=== PATIENT | male | born 1990 | race Caucasian/White ===

== ENCOUNTER 2021-04-27 08:59 | Emergency (ER) | payer OTHER, SELFPAY ==
--- NOTE | ~2021-04-27 | XR_ITS ---
EXAMINATION: XR chest 2V DATE: 04/27/2021 09:26 INDICATION: Midsternal chest pain. Cough and shortness of breath. TECHNIQUE: Frontal and lateral views of the chest were obtained. COMPARISON: None. FINDINGS: The chest demonstrates clear lungs without pneumonia, pleural effusion, or pneumothorax. Th e heart size is normal. IMPRESSION: 1. No acute cardiopulmonary disease. Reviewed, dictated and finalized at location A.
[2021-04-27 09:06] VITALS: BP 138/101; PULSE 96; RESP 14; TEMP 36.6; O2SAT 97
--- NOTE | 2021-04-27 09:11 | ECG_ITS ---
Measurements Intervals [place] Rate: 86 P: 59 NC: 163 QRS: -37 QRSD: 100 T: 47 QT: 348 QTc: 417 Interpretive Statements SINUS RHYTHM LEFT AXIS DEVIATION BORDERLINE R WAVE PROGRESSION, ANTERIOR LEADS BORDERLINE ECG Electronically Signed On 04-27-2021 9:15:29 CDT by Harry Sutton D.O.
[2021-04-27 09:12] VITALS: PULSE 90
[2021-04-27 09:29] LABS: Basophils Absolute Auto 0.1 K/mm3 (0.0-0.1); Basophils Percent Auto 0.7 % (0.2-1.2); Eosinophils Absolute Auto 0.1 K/mm3 (0-0.3); Eosinophils Percent Auto 1.8 % (0-4.4); Hematocrit 46.8 % (42.0-52.0); Hemoglobin 15.8 g/dL (14.0-18.0); Immature Granulocyte Absolute 0.03 K/mm3 (0.00-0.031); Immature Granulocyte Percent A 0.4 % (0-0.5); Lymphocytes Absolute Auto 3.27 K/mm3 (0.9-3.2); Lymphocytes Percent Auto 48.2 % (18.3-44.2); Mean Corpuscular HGB Conc 33.8 g/dl (32-36); Mean Corpuscular Hemoglobin 32.6 pg (26-34); Mean Corpuscular Volume 96.5 fl (80-100); Mean Platelet Volume 9.6 fl (7.4-10.4); Monocytes Absolute Auto 0.6 K/mm3 (0.1-0.6); Monocytes Percent Auto 9.1 % (2.6-8.5); Neutrophils Absolute Auto 2.7 K/mm3 (1.3-6.7); Neutrophils Percent Auto 39.8 % (45.5-73.1); Platelet Count Result 279 k/mm3 (150-375); Red Blood Count 4.85 M/mm3 (4.6-6.20); Red Cell Distribution Width 13.1 % (11.5-14.5); White Blood Count 6.8 K/mm3 (4.5-10.0)
[2021-04-27 09:39] LABS: Anion Gap 13 mmol/L (8-16); Blood Urea Nitrogen 9 mg/dL (9-20); Calcium 9.4 mg/dL (8.4-10.2); Carbon Dioxide 24 mmol/L (22-30); Chloride 99 mmol/L (98-107); Estimated Glomerular Filt Rate > 60; Glucose 99 mg/dL (65-110); Potassium 4.1 mmol/L (3.4-5.0); Sodium 136 mmol/L (137-145)
[2021-04-27 09:43] LABS: INR 0.9; Prothrombin Time 12.1 Seconds (11.1-14.7)
[2021-04-27 09:51] LABS: Troponin I < 0.012 ng/mL (0.000-0.034)
--- NOTE | 2021-04-27 09:59 | ED.CHESTPAIN ---
HPI - Chest Pain General Chief Complaint: Chest Pain Stated Complaint: Chest Heavy, Chills, Body Aches Time Seen by Provider: 04/27/21 09:57 Source: patient and RN notes reviewed History of Present Illness HPI narrative: Patient complaining been feeling sick, body aches and shortness of breath on exertion over the last 4 days associated with chills. Patient is fully vaccinated for COVID-19, had negative Covid test rapid and PCR over the last 3 days. Patient denies any fever, chills, nausea, vomiting, coughing. Patient reported the shortness of breath and chest pain worse with exertion, better at rest, patient denies lower extremity pain. Or distress. Patient works in the [employer] and would like to be of physical activity for 1 week Related Data Allergies Allergy/AdvReac Type Severity Reaction Status Date / Time No Known Allergies Allergy Verified 04/27/21 09:10 Review of Systems Review of Systems: CONSTITUTIONAL: Denies fever, chills, or sweats. EYES: Denies visual changes, redness, or discharge. ENT: Denies rhinorrhea, congestion, sore throat, or otalgia. CARDIOVASCULAR: Denies chest pain, palpitations, or edema. RESPIRATORY: Denies cough or dyspnea. GASTROINTESTINAL: Denies abdominal pain, nausea, vomiting, or diarrhea. GENITOURINARY: Denies dysuria or hematuria. SKIN: Denies rash or itching. MUSCULOSKELETAL: Denies back pain, joint pain, or myalgia. NEUROLOGIC: Denies headache, numbness, or weakness. PSYCHIATRIC: Denies anxiety or depression. [facility] Social History Social History Gender identity (if verbalized by the patient): Male Exam Narrative: General appearance: Well-developed, well-nourished Skin: Normal color Head: Normocephalic, nontraumatic Eyes: Clear conjunctiva ENT: Oropharynx normal, ears normal, nose normal Neck: Supple, nontender Chest and respiratory: Airway patent, no respiratory distress, no accessory muscle use Heart: Regular rate/rhythm Abdomen: Soft, nontender, no organomegaly, quiet bowel sounds Vascular: Normal peripheral pulses, normal capillary refill. Musculoskeletal: Normal range of motion, nontender back Neurologic: Alert and oriented ?3, MANAGER LAND is normal as tested, no gross motor deficit Course Course Emergency Course: Stable Vital Signs Vital signs: Vital Signs Temperature 36.6 C 04/27/21 09:06 Pulse Rate 96 04/27/21 09:06 Respiratory Rate 14 04/27/21 09:06 Blood Pressure 138/101 H 04/27/21 09:06 Pulse Oximetry 97 04/27/21 09:06 Temperature 36.6 C 04/27/21 09:06 Pulse Rate 83 04/27/21 10:47 Respiratory Rate 15 04/27/21 10:47 Blood Pressure 158/99 H 04/27/21 10:47 Pulse Oximetry 98 04/27/21 10:47 MDM - Chest Pain MDM Narrative Medical decision making narrative: Viral syndrome versus stress related symptoms Lab Data Result diagrams: 04/27/21 10:21 04/27/21 10:21 Labs: Lab Results 04/27/21 04/27/21 04/27/21 Range/Units 09:15 09:15 09:15 WBC 6.8 (4.5-10.0) K/mm3 RBC 4.85 (4.6-6.20) M/mm3 Hgb 15.8 (14.0-18.0) g/dL Hct 46.8 (42.0-52.0) % MCV 96.5 (80-100) fl MCH 32.6 (26-34) pg MCHC 33.8 (32-36) g/dl RDW 13.1 (11.5-14.5) % Plt Count 279 (150-375) k/mm3 MPV 9.6 (7.4-10.4) fl Immature Gran % (Auto) 0.4 (0-0.5) % Neut % (Auto) 39.8 L (45.5-73.1) % Lymph % (Auto) 48.2 H (18.3-44.2) % [place] % (Auto) 9.1 H (2.6-8.5) % Eos % (Auto) 1.8 (0-4.4) % Baso % (Auto) 0.7 (0.2-1.2) % Lymph # (Auto) 3.27 H (0.9-3.2) K/mm3 [place] # (Auto) 0.6 (0.1-0.6) K/mm3 Eos # (Auto) 0.1 (0-0.3) K/mm3 [place] # (Aut
[2021-04-27 10:28] LABS: Basophils Absolute Auto 0.1 K/mm3 (0.0-0.1); Basophils Percent Auto 0.8 % (0.2-1.2); Eosinophils Absolute Auto 0.1 K/mm3 (0-0.3); Eosinophils Percent Auto 1.7 % (0-4.4); Hematocrit 45.9 % (42.0-52.0); Hemoglobin 15.7 g/dL (14.0-18.0); Immature Granulocyte Absolute 0.02 K/mm3 (0.00-0.031); Immature Granulocyte Percent A 0.3 % (0-0.5); Lymphocytes Absolute Auto 2.49 K/mm3 (0.9-3.2); Lymphocytes Percent Auto 38.2 % (18.3-44.2); Mean Corpuscular HGB Conc 34.2 g/dl (32-36); Mean Corpuscular Hemoglobin 32.8 pg (26-34); Mean Corpuscular Volume 95.8 fl (80-100); Mean Platelet Volume 9.4 fl (7.4-10.4); Monocytes Absolute Auto 0.5 K/mm3 (0.1-0.6); Neutrophils Absolute Auto 3.3 K/mm3 (1.3-6.7); Platelet Count Result 263 k/mm3 (150-375); Red Blood Count 4.79 M/mm3 (4.6-6.20); White Blood Count 6.5 K/mm3 (4.5-10.0)
[2021-04-27 10:39] LABS: Alanine Aminotransferase 54 U/L (4-50); Albumin Level 4.6 g/dL (3.5-5.1); Alkaline Phosphatase 73 U/L (38-126); Anion Gap 11 mmol/L (8-16); Aspartate Amino Transferase 50 U/L (17-59); Bilirubin,Total 0.2 mg/dL (0.2-1.3); Blood Urea Nitrogen 9 mg/dL (9-20); Calcium 9.5 mg/dL (8.4-10.2); Carbon Dioxide 24 mmol/L (22-30); Chloride 99 mmol/L (98-107); Estimated Glomerular Filt Rate > 60; Glucose 99 mg/dL (65-110); Potassium 4.2 mmol/L (3.4-5.0); Sodium 134 mmol/L (137-145)
[2021-04-27 10:47] VITALS: BP 158/99; PULSE 83; RESP 15; O2SAT 98
[2021-04-27 12:05] LABS: D Dimer 0.27 ug/mL (<0.48)
[2021-04-27 12:20] VITALS: BP 156/92; PULSE 96; RESP 20; O2SAT 96
[2021-04-27 12:51] VITALS: BP 157/99; PULSE 98; RESP 14; TEMP 37.1; O2SAT 95
== END 2021-04-27 12:55 | disposition home or self-care (01) ==
PROVIDERS: Emergency Provider Emergency Medicine
DX: B34.9 Viral infection, unspecified (principal); R06.00 Dyspnea, unspecified; R94.31 Abnormal electrocardiogram [ECG] [EKG]
CPT/HCPCS: 36415; 71046; 80048; 80053; 84484; 85025; 85380; 85610; 85730; 93005; 99284

== ENCOUNTER 2023-02-19 17:34 | Emergency (ER) | payer OTHER, SELFPAY ==
[2023-02-19] VITALS (7 sets, daily range): BP systolic 153–175; BP diastolic 86–115; PULSE 96–128; RESP 16–22; TEMP 36.2; O2SAT 97–99
--- NOTE | ~2023-02-19 | XR_ITS ---
EXAMINATION: XR chest 1V portable 02/19/2023 18:19 INDICATION: Dizziness. Tachycardia. Chest palpitations. PROCEDURE: AP portable chest COMPARISON: 04/27/2021 FINDINGS: The lungs are clear. The cardiomediastinal silhouette is within normal limits. There are no pleural effusions. There is no pneumothorax suspected. IMPRESSION: 1: NO ACUTE CARDIOPULMONARY DISEASE. Reviewed, dictated and finalized at location L.
--- NOTE | ~2023-02-19 | CT_ITS ---
EXAMINATION: CTA chest PE protocol DATE: 02/19/2023 20:39 INDICATION: tachycardic tacypneic, TECHNIQUE: Computed tomography angiography (CTA) of the chest was performed with 100 mL Omnipaque-350 intravenous contrast timed to evaluate the pulmonary arteries. Coronal maximum intensity projection 3D-reconstructions were created by the technologist. The dose-length product (DLP) was 978.46 mGy-cm. Automated exposure control and iterative reconstruction technique were employed. COMPARISON: X-ray chest, same date. FINDINGS: Lung parenchyma and airways: Clear. Pleura: Unremarkable. Thoracic inlet, axillae and chest wall: Unremarkable. Thoracic aorta: Normal. Mediastinum: Normal. Heart and pericardium: Normal. Coronary artery calcifications: Absent. Upper abdomen: Diffuse fatty infiltration of the liver. Subcentimeter right lobe hypodensity, likely cyst or hemangioma.. Bones: No acute osseous finding. Pulmonary arteries: Study quality: Adequate. No pulmonary emboli detected. IMPRESSION: No CT evidence of acute pulmonary embolus. No acute intrathoracic process detected. Hepatic steatosis . Reviewed, dictated and finalized at location K. IMPRESSION: No CT evidence of acute pulmonary embolus. No acute intrathoracic process detec carmina. Hepatic steatosis.
--- NOTE | 2023-02-19 17:35 | ECG_ITS ---
Measurements Intervals [place] Rate: 115 P: 68 [place]: 159 QRS: -57 QRSD: 93 T: 64 QT: 306 QTc: 424 Interpretive Statements SINUS TACHYCARDIA LEFT ANTERIOR FASCICULAR BLOCK [QRS AXIS <= -45, QR IN I, RS IN II] COMPARED TO ECG 04/27/2021 09:11:21 SINUS TACHYCARDIA NOW PRESENT LEFT ANTERIOR FASCICULAR BLOCK NOW PRESENT Electronically Signed On 02-19-2023 18:29:18 CDT by Crystal Qureshi M.D.
[2023-02-19] MEDS: SODIUM CHLORIDE 0.9% IV 1,000 ML 999 ML IV CONT ×2 (18:32→18:56)
--- NOTE | 2023-02-19 18:54 | ED.ARRPALP ---
HPI - Arrhythmia/Palpitations General Chief Complaint: Arrhythmia/Palpitations <Quincy Santoro PA-C - Last Filed: 02/20/23 00:16> Stated Complaint: palpitations, dizzy <ANGELLA Estes Last Filed: 02/20/23 00:16> Time Seen by Provider: 02/19/23 18:10 <Quincy Santoro PA-C - Last Filed: 02/20/23 00:16> Source: patient <ANGELLA Estes Last Filed: 02/20/23 00:16> Mode of arrival: ambulatory <ANGELLA Estes Last Filed: 02/20/23 00:16> Limitations: no limitations <ANGELLA Estes Last Filed: 02/20/23 00:16> History of Present Illness HPI narrative: This is a 32-year-old male who presents to the ED with chief complaint of sudden onset palpitations and lightheadedness occurring this afternoon. Patient is in the [employer] and was doing and enlistment oath when this episode began. States he felt a rash come over him and he became nauseous and diaphoretic. States he tried to drive home and was getting a little short of breath when he drove home. He then laid down and became more nauseous and vomited once. Denies hematemesis. He states the dyspnea has subsided. Patient states he he has not had any chest pain at all today. Denies any LOC. Denies fevers, chills, abdominal pain, diarrhea, urinary symptoms, headache. Denies any recent increase in stress or anxiety. <ANGELLA Estes Last Filed: 02/20/23 00:16> Related Data Allergies/Adverse Reactions: Allergies Allergy/AdvReac Type Severity Reaction Status Date / Time No Known Allergies Allergy Verified 02/19/23 18:19 <ANGELLA Estes Last Filed: 02/20/23 00:16> [facility] Social History Social History: Social History Gender identity (if verbalized by the patient): Male <ANGELLA Estes Last Filed: 02/20/23 00:16> Exam Narrative: GENERAL: Overall well-appearing, however he does have some clamminess to his skin. HEAD: Normocephalic, atraumatic. EYES: PERRLA and EOMI. ENT: Nares clear, no rhinorrhea or epistaxis. Mucous membranes moist. Oropharynx without tonsillar hypertrophy exudate or other lesions. NECK: Supple. No adenopathy or masses. CHEST: Slightly tachypneic but no respiratory distress. Clear to auscultation. No wheezes rales or rhonchi. HEART: Tachycardic to 120 while I am in the room. Regular rhythm. No murmur heard. Normal peripheral pulses. ABDOMEN: Soft, nontender, nondistended, normal active bowel sounds. MSK: Normal range of motion. No edema. SKIN: Warm, dry, no rash. NEURO: Alert and oriented x3. No focal deficits. PSYCH: Normal mood and affect. <Quincy Santoro PA-C - Last Filed: 02/20/23 00:16> Course MANAGER PERSONAL/PA Physician Supervision For this patient encounter, I reviewed the MANAGER PERSONAL or PA documentation, treatment plan, and medical decision making and I had [id number] time with this patient. I performed all aspects of the MDM as documented. <Mouna Grajeda MD - Last Filed: 02/28/23 16:47> Vital Signs Vital signs: Vital Signs Temperature 97.1 F L 02/19/23 17:38 Pulse Rate 128 H 02/19/23 17:38 Respiratory Rate 22 H 02/19/23 17:38 Blood Pressure 153/99 H 02/19/23 17:38 Pulse Oximetry 99 02/19/23 17:38 Oxygen Delivery Room Air 02/19/23 17:38 Temperature 97.1 F L 02/19/23 17:38 Pulse Rate 117 H 02/19/23 22:49 Respiratory Rate 20 02/19/23 22:49 Blood Pressure 170/115 H 02/19/23 22:49 Pulse Oximetry 98 02/19/23 22:49 Oxygen Delivery Room Air 02/19/23 17:38 <Quincy Santoro PA-C - Last Filed: 02/20/23 00:16> Vital Signs Temperature 97.1 F L 02/19/23 17:38 Pulse Rate 128 H 02/19/23 17:38 Respiratory Rate 22 H 02/19/23 17:38 Blood Pressure 153/99 H 02/19/23 17:38 Pulse Oximetry 99 02/19/23 17:38 Oxygen Delivery Room Air 02/19/23 17:38 Temperature 97.1 F L 02/19/23 17:38 Pulse Rate 117 H 02/19/23 22:49 Respiratory Rate 20 06
[2023-02-19] MEDS: ONDANSETRON INJ 4 MG/2 ML VIAL IV PUSH (18:56)
[2023-02-19 19:32] LABS: Appearance Urine Clear (Clear); Bilirubin Urine Negative (Negative); Blood Urine Negative (Negative); Color Urine Yellow (Yellow); Glucose Urine UA Negative (Negative); Ketones Urine Negative (Negative); Leukocyte Esterase Ur Negative LEU/UL (Negative); Nitrate Urine Negative (Negative); Protein Urine Negative (Negative); Specific Grav Ur 1.007 (1.001-1.035); Urobilinogen Urine 0.2 mg/dL (<2.0)
[2023-02-19 19:36] LABS: Add Urine Microscopic? NO
[2023-02-19 19:43] LABS: Basophils Absolute Auto 0.1 K/mm3 (0.0-0.1); Basophils Percent Auto 0.7 % (0.2-1.2); Eosinophils Absolute Auto 0.1 K/mm3 (0-0.3); Eosinophils Percent Auto 0.3 % (0-4.4); Hematocrit 40.4 % (42.0-52.0); Immature Granulocyte Absolute 0.08 K/mm3 (0.00-0.031); Immature Granulocyte Percent A 0.5 % (0-0.5); Lymphocytes Absolute Auto 2.75 K/mm3 (0.9-3.2); Lymphocytes Percent Auto 18.1 % (18.3-44.2); Mean Corpuscular HGB Conc 34.7 g/dl (32-36); Mean Corpuscular Hemoglobin 33.7 pg (26-34); Mean Corpuscular Volume 97.1 fl (80-100); Mean Platelet Volume 9.3 fl (7.4-10.4); Monocytes Absolute Auto 0.8 K/mm3 (0.1-0.6); Monocytes Percent Auto 5.3 % (2.6-8.5); Neutrophils Absolute Auto 11.4 K/mm3 (1.3-6.7); Neutrophils Percent Auto 75.1 % (45.5-73.1); Platelet Count Result 272 k/mm3 (150-375); Red Blood Count 4.16 M/mm3 (4.6-6.20); Red Cell Distribution Width 12.8 % (11.5-14.5); White Blood Count 15.2 K/mm3 (4.5-10.0)
[2023-02-19 20:22] LABS: Alanine Aminotransferase 74 U/L (6-50); Albumin Level 4.3 g/dL (3.5-5.1); Alkaline Phosphatase 80 U/L (38-126); Anion Gap 8 mmol/L (8-16); Aspartate Amino Transferase 70 U/L (17-59); Bilirubin,Total 0.8 mg/dL (0.2-1.3); Blood Urea Nitrogen 9 mg/dL (9-20); Calcium 8.4 mg/dL (8.4-10.2); Carbon Dioxide 26 mmol/L (22-30); Chloride 100 mmol/L (98-107); Estimated CRCL calculation 185 ml/min; Estimated Glomerular Filt Rate > 60; Glucose 95 mg/dL (65-110); Magnesium 1.5 mg/dL (1.6-2.3); Potassium 3.5 mmol/L (3.4-5.0); Sodium 134 mmol/L (137-145)
[2023-02-19 20:35] LABS: Troponin I < 0.012 ng/mL (0.000-0.034)
[2023-02-19] MEDS: MAGNESIUM SULF 1 GM/D5W 100 ML 1 GM/100 ML BAG IVPB (21:24)
== END 2023-02-19 22:50 | disposition home or self-care (01) ==
PROVIDERS: Emergency Provider Physician Assistant
DX: R00.2 Palpitations (principal); R00.0 Tachycardia, unspecified; I44.4 Left anterior fascicular block
CPT/HCPCS: 36415; 71045; 71275; 80053; 81003; 83735; 84484; 85025; 93005; 96361; 96365; 96375; 99284; J0456; J2405; J3475; J7030; Q9967

== ENCOUNTER 2024-02-24 20:54 | Inpatient (IN) | payer OTHER, SELFPAY ==
--- NOTE | ~2024-02-24 | CT_ITS ---
EXAMINATION: CT chest abdomen pelvis w con DATE: 02/28/2024 11:28 INDICATION: Shortness of breath. Tachycardia and abdominal pain. TECHNIQUE: Computed tomography (CT) of the chest, abdomen, and pelvis was performed with 100 mL Omnip aque-350 intravenous contrast. Automated exposure control and iterative reconstruction technique were employed. The dose-length product was 1782.17 mGy-cm. COMPARISON: CT dated 02/24/2024 and MRI dated 02/25/2024 FINDINGS: CHEST CT: Small lung volumes. There is both basilar and dependent atelectasis in both lower lobes. There are sm all bilateral pleural effusions. No pneumonia or pulmonary edema in the aerated portions of the lungs . Heart size is normal. No pericardial effusion. Thoracic aorta is normal in caliber with no dissecti on. No pathologically enlarged thoracic lymphadenopathy. Chronic appearing mild anterior wedging at T 6. There are also few Schmorl's nodes in the lower thoracic spine. Mild to moderate thoracic spondylo sis. ABDOMEN/PELVIS CT: Likely vicariously excreted contrast in the gallbladder. Liver, spleen, bilateral adrenal glands and kidneys are normal. There is prominent peripancreatic stranding and acute peripancreatic fluid collec tions which extend into the bilateral perirenal spaces, the lesser omentum and along the mesentery co nsistent with acute interstitial pancreatitis. With pancreatic parenchymal enhancement with no eviden t necrosis. No other necrotic collections or loculated abscess. Small amount of nonloculated likely r eactive ascites in the abdomen and pelvis. Normal appendix. There is fluid throughout the large and s mall bowel consistent with nonspecific diarrhea. No bowel obstruction. Bladder is normal. No patholog ically enlarged abdominal or pelvic lymphadenopathy. Bone island at the right pubic body. IMPRESSION: 1. Acute interstitial pancreatitis with increasing peripancreatic stranding, acute peripancreatic flu id collections and small amount of ascites. 2. New small bilateral pleural effusions with basilar and dependent atelectasis in bilateral lower lo bes. 2. Increased fluid throughout nondilated large and small bowel consistent with nonspecific diarrhea w ithout obstruction. Reviewed, dictated and finalized at location B. IMPRESSION: 1. Acute interstitial pancreatitis with increasing peripancreatic stranding, ac [place] peripancreatic fluid collections and small amount of ascites. 2. New small bilateral pleural effusions with basilar and dependent atelectasis in bilateral lower lobes. 2. Increased fluid throughout nondilated large and small bowel consistent with nonspecific diarrhea without obstruction.
--- NOTE | ~2024-02-24 | MR_ITS ---
EXAMINATION: MR MRCP wo/w con/w 3D wo ind DATE: 02/25/2024 11:55 INDICATION: Pancreatitis. Transaminitis. TECHNIQUE: Magnetic resonance imaging (MRI) of the abdomen was performed without and with 20 mL Multi Rickey intravenous contrast. Sequences included coronal T2-weighted FS FSE, coronal T2-weighted FSE, a xial T1-weighted LAVA, coronal FS FIESTA, axial dual-echo T1-weighted SPGR, coronal lava-FLEX, sagitt al T2-weighted FSE, axial T2-weighted FSE, and axial DWI. Thick-slab T2-weighted FSE images were obta ined for magnetic resonance cholangiopancreatography (MRCP). Maximum intensity projection 3-D reconst ructions of the volumetric data were created by the technologist. Postcontrast sequences included cor onal LAVA-flex and time course of axial T1-weighted LAVA. COMPARISON: Abdomen ultrasound 02/25/2024, CT 02/24/2024 FINDINGS: ABDOMEN MRI: There is diffuse hepatic steatosis. The gallbladder is normal in size. The liver, adrena l glands, and kidneys are normal. There is extensive fat stranding and small volume of free fluid in the abdomen centered at the pancreas. The pancreas enhances throughout. There are no dilated loops of bowel. ABDOMEN MRCP: The common duct is normal and measures 3 mm. No choledocholithiasis. IMPRESSION: 1. Acute interstitial pancreatitis. 2. Diffuse hepatic steatosis. Reviewed, dictated and finalized at location A.
--- NOTE | ~2024-02-24 | CT_ITS ---
EXAMINATION: CTA chest PE protocol DATE: 02/28/2024 12:45 INDICATION: Shortness of breath and tachycardia TECHNIQUE: Computed tomography (CT) pulmonary angiogram of the chest was performed with 200 mL Omnipa que-350 intravenous contrast. Additional 3D reconstructions utilizing coronal maximum intensity proje ction (MIP) were performed. Automated exposure control and iterative reconstruction technique were em ployed. The dose-length product was 1766.61 mGy-cm. COMPARISON: None FINDINGS: Limited but suboptimal contrast desiccation of the pulmonary arteries on both initial and repeat imag ing. There is small amount of respiratory motion along with prominent streak artifact from dense cont rast in the left brachiocephalic vein, superior vena cava and right atrium. No evident pulmonary embo lism with sensitivity decreased in some of the smaller subsegmental pulmonary arteries. Decreased deepak ateral lung volumes particularly in the lower lobes with basilar and dependent atelectasis in the deepak ateral lower lobes. There is homogeneous enhancement of the collapsed portion of the lower lobes with out evident pulmonary infarct. No pneumonia or pulmonary edema. Small bilateral pleural effusions. He art size is normal. No pericardial effusion. Thoracic aorta is normal in caliber with no dissection. No pathologically enlarged thoracic lymphadenopathy. Diffuse hepatic steatosis. Findings consistent with acute interstitial pancreatitis with prominent peripancreatic stranding and acute peripancreatic fluid collections. IMPRESSION: 1. No pulmonary embolism. Sensitivity decreased in some of the smaller subsegmental pulmonary edema t o good but suboptimal contrast opacification, mild respiratory motion and more prominent streak artif act. 2. Small lung volumes with basilar and dependent atelectasis in the bilateral lower lobes. 3. Small bilateral pleural effusions. 4. Acute interstitial pancreatitis. Reviewed, dictated and finalized at location B. IMPRESSION: 1. No pulmonary embolism. Sensitivity decreased in some of the smaller subsegme ntal pulmonary edema to good but suboptimal contrast opacification, mild respir atory motion and more prominent streak artifact. 2. Small lung volumes with basilar and dependent atelectasis in the bilateral l ower lobes. 3. Small bilateral pleural effusions. 4. Acute interstitial pancreatitis.
--- NOTE | ~2024-02-24 | US_ITS ---
EXAMINATION: US abdomen limited DATE: 02/25/2024 07:41 INDICATION: Pancreatitis. Abnormal liver function tests. TECHNIQUE: Multiple grayscale and Doppler ultrasound images of the abdomen were obtained. COMPARISON: CT abdomen and pelvis 02/24/2024 FINDINGS: The pancreas is hypoechoic and heterogeneous, consistent with pancreatitis. There is diffus e hepatic steatosis. There is normal flow in main portal vein. The gallbladder is normal in size. No gallstones or gallbladder wall thickening. The common duct is normal and measures 4 mm. IMPRESSION: 1. Acute pancreatitis. 2. Diffuse hepatic steatosis. Reviewed, dictated and finalized at location A.
--- NOTE | ~2024-02-24 | CT_ITS ---
CT of the Abdomen and Pelvis: Indication: Abdominal pain Technique: 2.5 mm axial scans were obtained through the abdomen and pelvis following intravenous adm inistration of 100 cc of Omnipaque 350. Dose reduction technique was used on this scan by utilizing a utomated exposure control and iterative reconstruction technique. The dose-length product (DLP) was 1 296.30 mGy-cm. Findings: Scans through the lung bases demonstrate linear scarring or atelectasis right lung base. There is diffuse hepatic steatosis. There is extensive peripancreatic fluid and inflammatory change, with fluid extending into the anterior abdomen, as well as a small amount of pelvic ascites. No pancr eatic necrosis or distinct pseudocyst evident at this time. The spleen, gallbladder, adrenals and kid neys are within normal limits. No evidence of aortic aneurysm. No lymphadenopathy. No bowel obstruction or bowel wall thickening. There is no evidence to suggest acute appendicitis. Images through the pelvis were performed. Urinary bladder unremarkable. No pelvic mass seen. Impression: Acute pancreatitis, with extensive peripancreatic fluid and inflammatory change, as detailed above. N o pancreatic necrosis or pseudocyst identified. Diffuse hepatic steatosis. Reviewed, dictated and finalized at location . Impression: Acute pancreatitis, with extensive peripancreatic fluid and inflammatory change , as detailed above. No pancreatic necrosis or pseudocyst identified. Diffuse hepatic steatosis.
[2024-02-24 20:59] VITALS: PULSE 123; RESP 18; TEMP 36.3; O2SAT 96
[2024-02-24 21:51] VITALS: BP 141/89; PULSE 111; RESP 22; O2SAT 98
--- NOTE | 2024-02-24 22:08 | ED.NAVMDI ---
HPI - Nausea/Vomiting/Diarrhea General Chief complaint: Nausea/Vomiting/Diarrhea Stated complaint: abdominal pain Time Seen by Provider: 02/24/24 22:07 Source: patient Mode of arrival: ambulatory Limitations: no limitations History of Present Illness HPI Narrative: Patient presents with acute onset right lower quadrant/right sided abdominal pain and right flank pain. He reports being at his normal baseline state of health prior to this. This was associated with nausea vomiting (1 episode emesis) and he was diaphoretic. No fever. He denies any dysuria, hematuria, urgency, or frequency. No history of urinary tract infections or kidney stones. Hx of HTN on metoprolol and lisinopril. No history diabetes. No history of appendectomy or cholecystectomy. Related Data Home Medications Medication Instructions Recorded Confirmed lisinopril 20 1 tablet PO DAILY 02/25/24 02/25/24 mg-hydrochlorothiazide 12.5 mg tablet metoprolol succinate 50 mg 50 mg PO DAILY 02/25/24 02/25/24 tablet,extended release 24 hr Allergies Allergy/AdvReac Type Severity Reaction Status Date / Time No Known Allergies Allergy Verified 02/24/24 21:02 [facility] Past Medical History Medical History Hypertension DENISE on CPAP Family History Family History Mother Hypertension Social History Social History Smoking status: Never smoker Alcohol intake: current Other substance usage details: weekend use Do You Feel Safe in your Home?: Yes Lack of Transportation: No Lack of Food: Never True Current Housing: I Have Housing Concerned About Future Housing: No Difficulty Paying Gas/Electric Bills: No Difficulty Paying for Meds: No Currently Unemployed: No Education: Bachelor's Degree Difficulty w/ Childcare or Family Care: No Gender identity (if verbalized by the patient): Male Spiritual care concerns: No Exam Narrative: GENERAL: well-nourished, and in moderate acute distress. HEAD: Normocephalic, atraumatic. EYES: Non injected, non icteric ENT: Nares clear, no rhinorrhea or epistaxis. NECK: Supple. CHEST: Speaking in full sentences. No respiratory distress. HEART: Tachycardic rate and rhythm. . ABDOMEN: Soft, nondistended. Tender to palpation thoughout though particularly RLQ and adjacent to umbilicus. EXTREMITIES: Normal range of motion. No edema. SKIN: Diaphoretic, no rash. NEURO: No focal deficits. Alert and oriented x3. PSYCH: Normal mood and affect. Course Vital Signs Vital signs: Vital Signs Temperature 97.4 F L 02/24/24 20:59 Pulse Rate 123 H 02/24/24 20:59 Respiratory Rate 18 02/24/24 20:59 Pulse Oximetry 96 02/24/24 20:59 Oxygen Delivery Room Air 02/24/24 20:59 Temperature 96.9 F L 02/25/24 14:00 Pulse Rate 113 H 02/25/24 14:00 Respiratory Rate 20 02/25/24 14:00 Blood Pressure 154/93 H 02/25/24 14:00 Pulse Oximetry 95 02/25/24 14:00 Oxygen Delivery Room Air 02/25/24 08:00 MDM - Nausea/Vomiting/Diarrhea MDM Narrative Medical decision making narrative: Patient presents with acute onset RLQ/right sided abdominal pain associated with nausea/1 episode emesis, and diaphoresis. In the emergency department he is afebrile with vital signs notable for tachycardia as well as mild hypertension. Mild Hyperglycemia with anion gap and acidosis; no history of diabetes. Might be starvation versus alcohol ketosis. Will await urine and beta hydroxybutyrate. ELevated AST and ALT. Lipase markedly elevated consistent with pancreatitis. Patient is informed about this and that he will be admitted following CT imaging to confirm no complications such as abscess/perforation/fistula et cetera. Does state his pain is returning and another dose of analgesic medication is ordered. He also states he feels
[2024-02-24 22:25] LABS: Basophils Absolute Auto 0.1 K/mm3 (0.0-0.1); Basophils Percent Auto 0.2 % (0.2-1.2); Hematocrit 49.2 % (42.0-52.0); Hemoglobin 17.7 g/dL (14.0-18.0); Immature Granulocyte Absolute 0.17 K/mm3 (0.00-0.031); Immature Granulocyte Percent A 0.7 % (0-0.5); Lymphocytes Absolute Auto 1.68 K/mm3 (0.9-3.2); Lymphocytes Percent Auto 6.5 % (18.3-44.2); Mean Corpuscular Volume 94.4 fl (80-100); Mean Platelet Volume 9.4 fl (7.4-10.4); Monocytes Absolute Auto 0.8 K/mm3 (0.1-0.6); Monocytes Percent Auto 3.1 % (2.6-8.5); Neutrophils Percent Auto 89.5 % (45.5-73.1); Platelet Count Result 309 k/mm3 (150-375); Red Blood Count 5.21 M/mm3 (4.6-6.20); Red Cell Distribution Width 12.6 % (11.5-14.5); White Blood Count 25.7 K/mm3 (4.5-10.0)
[2024-02-24] MEDS: MORPHINE SULFATE (*CRX) 4 MG/ML INJ IV PUSH (22:26)
[2024-02-24] MEDS: ONDANSETRON INJ 4 MG/2 ML VIAL IV PUSH (22:26)
[2024-02-24] MEDS: SODIUM CHLORIDE 0.9% IV 1,000 ML 999 ML IV CONT ×2 (22:30→23:20)
[2024-02-24 22:35] LABS: Lactic Acid Reflex 3.6 mmol/L (0.7-2.0)
[2024-02-24 23:14] LABS: Alanine Aminotransferase 108 U/L (6-50)
[2024-02-24 23:28] LABS: Albumin Level 4.9 g/dL (3.5-5.1); Alkaline Phosphatase 85 U/L (38-126); Anion Gap 15 mmol/L (4-12); Aspartate Amino Transferase 98 U/L (17-59); Bilirubin,Total 1.1 mg/dL (0.2-1.3); Blood Urea Nitrogen 14 mg/dL (9-20); Calcium 9.5 mg/dL (8.4-10.2); Carbon Dioxide 20 mmol/L (22-30); Chloride 100 mmol/L (98-107); Estimated CRCL calculation 142 ml/min; Estimated Glomerular Filt Rate > 60; Glucose 166 mg/dL (65-110); Sodium 135 mmol/L (137-145)
[2024-02-24 23:29] LABS: Lipase 3354 U/L (23-300)
[2024-02-24] MEDS: HYDROmorphone HCL INJ (*CRX) 1 MG/ML SYR 0.5 MG IV PUSH (23:45)
[2024-02-24 23:49] LABS: Magnesium 1.3 mg/dL (1.6-2.3)
[2024-02-25] VITALS (8 sets, daily range): BP systolic 150–184; BP diastolic 92–124; PULSE 99–135; RESP 16–20; TEMP 35.7–36.6; O2SAT 92–96; BMI 37.0
[2024-02-25 00:06] LABS: Beta-Hydroxybutyrate/Acetoacetate 0.49 mmol/L (0.02-0.27)
[2024-02-25] MEDS: MAGNESIUM SULF 1 GM/D5W 100 ML 1 GM/100 ML BAG IVPB (00:06)
[2024-02-25 00:16] LABS: Triglycerides 225 mg/dL (<150)
[2024-02-25 00:28] LABS: Appearance Urine Clear (Clear); Bacteria Urine None Seen /hpf; Bilirubin Urine Negative (Negative); Blood Urine Negative (Negative); Color Urine Dark Yellow (Yellow); Glucose Urine UA Negative (Negative); Ketones Urine Trace mg/dL (Negative); Leukocyte Esterase Ur Negative LEU/UL (Negative); Nitrate Urine Negative (Negative); Non Pathogenic Casts >20; Protein Urine 1+ mg/dL (Negative); RBC Urine 0-2 /hpf (0-2); Squamous Epithelial Cell Urine None Seen /hpf (Few); WBC Urine 0-5 /hpf (0-3)
[2024-02-25 00:31] LABS: Add Urine Microscopic? YES; Specific Grav Ur 1.035 (1.001-1.035)
[2024-02-25] MEDS: INSULIN HUMAN REGULAR (*BKC) 100 UNITS/ML 6 UNITS SUB-Q (00:43)
[2024-02-25 00:52] LABS: Hemoglobin A1C 5.6 % (<5.7)
[2024-02-25 01:23] LABS: Reflex Lactic Acid Yes or No Add Lactic
[2024-02-25 02:25] LABS: Lactic Acid 2.6 mmol/L (0.7-2.0)
[2024-02-25] MEDS: SODIUM CHLORIDE 0.9% IV 1,000 ML 999 ML IV CONT (02:30)
[2024-02-25] MEDS: LACTATED RINGERS 1,000 ML 125 ML IV CONT ×2 (02:47→15:07)
[2024-02-25 03:02] LABS: Anion Gap 9 mmol/L (4-12); Blood Urea Nitrogen 16 mg/dL (9-20); Calcium 8.2 mg/dL (8.4-10.2); Carbon Dioxide 23 mmol/L (22-30); Chloride 102 mmol/L (98-107); Estimated CRCL calculation 160 ml/min; Estimated Glomerular Filt Rate > 60; Glucose 165 mg/dL (65-110); Sodium 134 mmol/L (137-145)
--- NOTE | 2024-02-25 03:53 | ADMGEN ---
This patient, Luis Nava, was admitted to 3 [facility] Surg Room 329-01. Patient/family oriented to hospital policies and general routines including ID bracelet, bed and alarms, visiting hours, pain management, procedures, bathroom and other care routines, personal items, smoking policy, room service/diet, and visiting hours. Information on how to activate the Rapid Response Team has been discussed. Patient/Family are encouraged to report perceived risks to care and to ask questions if they do not understand what they are told or what they should do.
[2024-02-25] MEDS: MORPHINE SULFATE (*CRX) 4 MG/ML INJ IV PUSH (04:03)
[2024-02-25] MEDS: HYDROmorphone HCL INJ (*CRX) 1 MG/ML SYR IV PUSH ×4 (05:43→21:24)
--- NOTE | 2024-02-25 07:23 | PM.IMHP ---
H&P: HPI History of Present Illness Date/Time: 02/25/24 14:23 Chief Complaint: pancreatitis Narrative: This is a 33-year-old male patient with a past medical history of hypertension and obstructive sleep apnea with use of CPAP at home who is admitted to the hospital for acute pancreatitis. Patient presented to the hospital yesterday after hours of abdominal pain nausea vomiting this started after lunch. Patient reports that he partakes in social alcohol use heavier use on the weekends. Patient denies smoking denies other drug use. He states that he drank heavier than usual for the last 4 nights due to a long weekend from work. Patient reports that he takes 2 medications for his blood pressure lisinopril/ HCTZ and metoprolol. Patient reports that he was initiated on the metoprolol after a prior incident pain nausea vomiting and tachycardia while on a training exercise. Patient was evaluated in [facility] and ultimately started on beta-cristiano for tachycardia. He feels like this was similar to this event but pain is worse this time. He reports that he vomited several times before coming to the hospital and has continued to feel nauseous but no subsequent emesis. Patient initially placed on NPO status except ice chips and IV fluids started. CT scan in the emergency department showed peripancreatic inflammation And fatty liver. Right upper quadrant ultrasound confirms diffuse hepatosteatosis but normal ducts size and no signs acute cholecystitis. MRCP shows peripancreatic fluid accumulation no choledocholithiasis. Gastroenterology was consulted and they have initiated significant laboratory assessment transaminitis and hepatic steatosis. IV fluids continue. Patient complaining of constipation. Now that we know he will not have ERCP he no longer has to remain NPO and we will gently start repeating attempts initiating with clear liquids and advancing as tolerated to bland diet. IV fluids will continue and we will trend CMP and lipase levels as well as CBC. Patient has significant leukocytosis initially greater than 25,000. Due to the peripancreatic fluid we will administer IV Rocephin and trend labs. No definitive signs of acute cholangitis at this time. Review of Systems Review of Systems: All systems reviewed & are unremarkable except as noted in HPI and below PMFSH Past Medical History Medical History Hypertension DENISE on CPAP Family History Family History Mother Hypertension Social History Social History Smoking status: Never smoker Alcohol intake: current Other substance usage details: weekend use Do You Feel Safe in your Home?: Yes Lack of Transportation: No Lack of Food: Never True Current Housing: I Have Housing Concerned About Future Housing: No Difficulty Paying Gas/Electric Bills: No Difficulty Paying for Meds: No Currently Unemployed: No Education: Bachelor's Degree Difficulty w/ Childcare or Family Care: No Gender identity (if verbalized by the patient): Male Spiritual care concerns: No Meds Home Medications and Allergies Home Medications Medication Instructions Recorded Confirmed Type lisinopril 20 1 tablet PO DAILY 02/25/24 02/25/24 History mg-hydrochlorothiazide 12.5 mg tablet metoprolol succinate 50 mg 50 mg PO DAILY 02/25/24 02/25/24 History tablet,extended release 24 hr Allergies Allergy/AdvReac Type Severity Reaction Status Date / Time No Known Allergies Allergy Verified 02/24/24 21:02 Vital Signs Vital Signs - 24 hr 02/24/24 20:59 02/24/24 21:51 02/25/24 05:10 Temperature 36.3 C L 36.4 C Pulse Rate 123 H 111 H 121 H Respiratory Rate 18 22 H 16 Blood Pressure 141/89 H 182/92 H Pulse Oximetry 96 98 96 Oxygen Delivery Room Air 02/25/24 06:37 Temperature
[2024-02-25 07:47] LABS: Basophils Percent Auto 0.1 % (0.2-1.2); Hematocrit 48.9 % (42.0-52.0); Hemoglobin 16.9 g/dL (14.0-18.0); Immature Granulocyte Absolute 0.14 K/mm3 (0.00-0.031); Immature Granulocyte Percent A 0.6 % (0-0.5); Mean Corpuscular HGB Conc 34.6 g/dl (32-36); Mean Corpuscular Hemoglobin 34.3 pg (26-34); Mean Corpuscular Volume 99.2 fl (80-100); Mean Platelet Volume 9.4 fl (7.4-10.4); Monocytes Absolute Auto 0.7 K/mm3 (0.1-0.6); Monocytes Percent Auto 3.3 % (2.6-8.5); Neutrophils Absolute Auto 19.7 K/mm3 (1.3-6.7); Platelet Count Result 265 k/mm3 (150-375); Red Blood Count 4.93 M/mm3 (4.6-6.20); Red Cell Distribution Width 12.8 % (11.5-14.5); White Blood Count 22.4 K/mm3 (4.5-10.0)
[2024-02-25 07:57] LABS: Lactic Acid Reflex 1.9 mmol/L (0.7-2.0)
[2024-02-25 08:06] LABS: Alanine Aminotransferase 77 U/L (6-50); Alkaline Phosphatase 56 U/L (38-126); Anion Gap 7 mmol/L (4-12); Aspartate Amino Transferase 66 U/L (17-59); Bilirubin,Total 1.2 mg/dL (0.2-1.3); Blood Urea Nitrogen 17 mg/dL (9-20); Calcium 7.7 mg/dL (8.4-10.2); Carbon Dioxide 25 mmol/L (22-30); Chloride 103 mmol/L (98-107); Estimated CRCL calculation 163 ml/min; Estimated Glomerular Filt Rate > 60; Glucose 136 mg/dL (65-110); Magnesium 1.6 mg/dL (1.6-2.3); Sodium 135 mmol/L (137-145)
--- NOTE | 2024-02-25 08:25 | P.CONGI_ITS ---
I, Torito Grove MD, have provided a substantive portion of the care of this patient and discussed the patient with my Nurse Practitioner. I have reviewed any new relevant radiographic and laboratory results including medications. I agree with her documentation as noted below.?I personally performed the medical decision making and much of the history and exam for this encounter. here with new onset of abdominal pain, n/v and diagnosed with acute pancreatitis, had wbc 22k, transaminases 60-70, lipase 3000. MRCP c/w pancreatitis and fatty liver, no stone in bile duct. He drinks mostly in weekends but can be as much as 6 drinks per day, he has had a long weekend and was drinking as well. This is first time of pancreatitis, still with nausea but overall better. He understood that drinking excessively can cause pancreatitis and ready to quit. Plan is liquid diet and advance as tolerated. Assessment and Plan Assessment and plan (1) Acute pancreatitis: Qualifiers: Pancreatitis type: idiopathic Acute pancreatitis complication: no infection or necrosis Qualified Code(s): K85.00 - Idiopathic acute pancreatitis without necrosis or infection Code(s): K85.90 - Acute pancreatitis without necrosis or infection, unspecified Status: Acute (2) Elevated liver transaminase level: Code(s): R74.01 - Elevation of levels of liver transaminase levels Status: Acute (3) Hepatic steatosis: Code(s): K76.0 - Fatty (change of) liver, not elsewhere classified Status: Acute (4) Elevated lipase: Code(s): R74.8 - Abnormal levels of other serum enzymes Status: Acute (5) Nausea and vomiting: Qualifiers: Vomiting type: bilious vomiting Qualified Code(s): R11.14 - Bilious vomiting Code(s): R11.2 - Nausea with vomiting, unspecified Status: Acute (6) Leukocytosis: Qualifiers: Leukocytosis type: unspecified Qualified Code(s): D72.829 - Elevated white blood cell count, unspecified Code(s): D72.829 - Elevated white blood cell count, unspecified Status: Acute Plan 1) Acute pancreatitis/elevated lipase/nausea and vomiting/ leukocytosis: Patient with acute onset of right mid abdominal pain since yesterday around 1500. He at lunch without any issues or pain. Once pain started it radiated throughout his abdomen and into his mid lower back. Upon onset of symptoms he also started exp eriencing abdominal bloating. He he was having nausea and vomiting prior to admission but denies any episodes since admission. On admission triglycerides were at 225, lipase at 3354 and WBCs 22, patient had been fasting for around 8 hours prior to his presentation to the ER. He is a social drinker but denies excessive alcohol use. Denies any prior episodes of pancreatitis. Denies any new medications or possible precipitating factors. CT on admission showed acute pancreatitis, with extensive peripancreatic fluid and inflammatory change, as detailed above. No pancreatic necrosis or pseudocyst identified. Ultrasound showed acute pancreatitis but no signs of ductal dilation or obstruction. U nclear etiology at this time. * MRCP pending to rule of biliary obstruction not seen on prior imaging, if abnormal will consider ERCP * continue supportive care with pain management and antiemetics 2) Abnormal imaging liver-hepatic steatosis/elevated liver transaminase: CT and ultrasound showed diffuse hepatic steatosis. Patient with chronic mild transaminase elevation for more than a year. Today total bilirubin and alk-phos normal and AST 66 and ALT 77. Patient is overweight with a BMI of 37 and is a social drinker.
--- NOTE | 2024-02-25 08:25 | WPDGICN ---
Assessment and Plan Assessment and plan (1) Acute pancreatitis: Qualifiers: Pancreatitis type: idiopathic Acute pancreatitis complication: no infection or necrosis Qualified Code(s): K85.00 - Idiopathic acute pancreatitis without necrosis or infection Code(s): K85.90 - Acute pancreatitis without necrosis or infection, unspecified Status: Acute (2) Elevated liver transaminase level: Code(s): R74.01 - Elevation of levels of liver transaminase levels Status: Acute (3) Hepatic steatosis: Code(s): K76.0 - Fatty (change of) liver, not elsewhere classified Status: Acute (4) Elevated lipase: Code(s): R74.8 - Abnormal levels of other serum enzymes Status: Acute (5) Nausea and vomiting: Qualifiers: Vomiting type: bilious vomiting Qualified Code(s): R11.14 - Bilious vomiting Code(s): R11.2 - Nausea with vomiting, unspecified Status: Acute (6) Leukocytosis: Qualifiers: Leukocytosis type: unspecified Qualified Code(s): D72.829 - Elevated white blood cell count, unspecified Code(s): D72.829 - Elevated white blood cell count, unspecified Status: Acute Plan 1) Acute pancreatitis/elevated lipase/nausea and vomiting/ leukocytosis: Patient with acute onset of right mid abdominal pain since yesterday around 1500. He at lunch without any issues or pain. Once pain started it radiated throughout his abdomen and into his mid lower back. Upon onset of symptoms he also started experiencing abdominal bloating. He he was having nausea and vomiting prior to admission but denies any episodes since admission. On admission triglycerides were at 225, lipase at 3354 and WBCs 22, patient had been fasting for around 8 hours prior to his presentation to the ER. He is a social drinker but denies excessive alcohol use. Denies any prior episodes of pancreatitis. Denies any new medications or possible precipitating factors. CT on admission showed acute pancreatitis, with extensive peripancreatic fluid and inflammatory change, as detailed above. No pancreatic necrosis or pseudocyst identified. Ultrasound showed acute pancreatitis but no signs of ductal dilation or obstruction. Unclear etiology at this time. MRCP pending to rule of biliary obstruction not seen on prior imaging, if abnormal will consider ERCP continue supportive care with pain management and antiemetics 2) Abnormal imaging liver-hepatic steatosis/elevated liver transaminase: CT and ultrasound showed diffuse hepatic steatosis. Patient with chronic mild transaminase elevation for more than a year. Today total bilirubin and alk-phos normal and AST 66 and ALT 77. Patient is overweight with a BMI of 37 and is a social drinker. Liver work up ordered and he can follow up as outpatient for further workup Weight loss, healthy eating, cholesterol control, alcohol avoidance, and exercise recommended Thank you for allowing me to share in the care of this very nice patient. This report may have been done utilizing a voice recognition system. Attempts have been made to correct errors. However, there may be uncorrected grammatical, spelling, and recognition errors present. GI Consult Note Consult date/time: 02/25/24 08:25 Reason for consult: Pancreatitis HPI: Luis Nava is a 33 year old male with past medical surgical Hx of HTN and bilateral inguinal hernia repairs as an infant. He presented to the emergency room yesterday with complaints of abdominal pain. GI consulted for pancreatitis. Patient states that yesterday around 1500 he started having right mid abdominal pain along with bloating in that area. The pain then radiated throughout his abdomen and into his lower mid back. Yesterday he was experiencing nausea and vomiting but denies any episodes since admission. He admits to abdominal bloating that has increased since admission. Decreased appetite since yesterday but prior to
[2024-02-25] MEDS: METOPROLOL SUCCINATE EXT REL 50 MG TABCR PO (09:26)
[2024-02-25] MEDS: lisinopriL 20 MG TABLET PO (09:26)
[2024-02-25] MEDS: hydroCHLOROthiazide 12.5 MG CAPSULE PO (09:27)
[2024-02-25] MEDS: CALCIUM CHLOR 1,000MG/100ML NS 1,000 MG/100 ML BAG 100 MG IVPB (09:31)
[2024-02-25 09:59] LABS: Hemoglobin A1C 5.6 % (<5.7)
[2024-02-25 10:37] LABS: Alanine Aminotransferase 70 U/L (6-50); Albumin Level 3.9 g/dL (3.5-5.1); Alkaline Phosphatase 64 U/L (38-126); Aspartate Amino Transferase 59 U/L (17-59); Bilirubin,Total 1.1 mg/dL (0.2-1.3)
[2024-02-25 11:59] LABS: Glucose Point of Care 143 mg/dl (65-105)
[2024-02-25] MEDS: cefTRIAXone 2 GM/NS 100 ML 2 GM/100 ML BAG IVPB (16:24)
[2024-02-25] MEDS: MAGNESIUM CITRATE 300 ML BTL PO (16:26)
[2024-02-25 20:00] LABS: Lipase 4785 U/L (23-300)
[2024-02-25] MEDS: METOPROLOL TARTRATE 50 MG TAB PO (21:25)
[2024-02-25] MEDS: lisinopriL 10 MG TABLET PO (22:18)
[2024-02-26] VITALS (7 sets, daily range): BP systolic 135–162; BP diastolic 80–97; PULSE 96–141; RESP 12–20; TEMP 35.8–36.9; O2SAT 92–95
[2024-02-26] MEDS: LACTATED RINGERS 1,000 ML 125 ML IV CONT ×3 (01:11→11:22)
[2024-02-26] MEDS: HYDROmorphone HCL INJ (*CRX) 1 MG/ML SYR IV PUSH ×3 (01:11→11:22)
[2024-02-26 05:16] LABS: Basophils Absolute Auto 0.1 K/mm3 (0.0-0.1); Basophils Percent Auto 0.4 % (0.2-1.2); Hematocrit 49.2 % (42.0-52.0); Hemoglobin 16.6 g/dL (14.0-18.0); Immature Granulocyte Absolute 0.16 K/mm3 (0.00-0.031); Immature Granulocyte Percent A 0.6 % (0-0.5); Mean Corpuscular HGB Conc 33.7 g/dl (32-36); Mean Corpuscular Hemoglobin 33.7 pg (26-34); Mean Corpuscular Volume 99.8 fl (80-100); Mean Platelet Volume 9.8 fl (7.4-10.4); Monocytes Absolute Auto 1.1 K/mm3 (0.1-0.6); Monocytes Percent Auto 4.2 % (2.6-8.5); Neutrophils Absolute Auto 21.3 K/mm3 (1.3-6.7); Neutrophils Percent Auto 84.8 % (45.5-73.1); Platelet Count Result 222 k/mm3 (150-375); Red Blood Count 4.93 M/mm3 (4.6-6.20); Red Cell Distribution Width 13.2 % (11.5-14.5); White Blood Count 25.1 K/mm3 (4.5-10.0)
[2024-02-26 05:33] LABS: Alanine Aminotransferase 46 U/L (6-50); Albumin Level 3.6 g/dL (3.5-5.1); Alkaline Phosphatase 57 U/L (38-126); Anion Gap 6 mmol/L (4-12); Aspartate Amino Transferase 41 U/L (17-59); Bilirubin,Total 1.2 mg/dL (0.2-1.3); Blood Urea Nitrogen 16 mg/dL (9-20); Calcium 7.2 mg/dL (8.4-10.2); Carbon Dioxide 24 mmol/L (22-30); Chloride 100 mmol/L (98-107); Estimated CRCL calculation 144 ml/min; Estimated Glomerular Filt Rate > 60; Glucose 118 mg/dL (65-110); Magnesium 2.1 mg/dL (1.6-2.3); Potassium 3.3 mmol/L (3.4-5.0); Sodium 130 mmol/L (137-145)
[2024-02-26] MEDS: WATER FOR IRRIGATION, STERILE 500 ML BOTTLE (06:08)
[2024-02-26 07:22] LABS: Glucose Point of Care 123 mg/dl (65-105)
--- NOTE | 2024-02-26 08:02 | PM.IMPN ---
Progress Note: A&P Assessment and Plan (1) Acute pancreatitis: Qualifiers: Acute pancreatitis complication: no infection or necrosis Pancreatitis type: idiopathic Qualified Code(s): K85.00 - Idiopathic acute pancreatitis without necrosis or infection Code(s): K85.90 - Acute pancreatitis without necrosis or infection, unspecified Status: Acute Assessment and Plan: Elevated lipase with CT findings of pancreatitis, likely exacerbated by weekend ETOH consumption over 4 nights where he drank heavier than normal Patient describes a prior episode that was similar but not as severe where he had tachycardia, pain, nausea, vomiting and was ultimately started on metoprolol due to HTN and tachycardia Initial bowel rest with IV hydration followed by clears and ADAT to bland diet Trend CMP and lipase MRCP shows peripancreatic fluid, no choledocholithiasis noted Diffuse fatty liver on imaging GI consulted, appreciate recommendations and workup initiation ACHS or Q6H fingerstick glucose with low dose SSI and hypoglycemia protocol vitals q.4 telemetry ordered 02/25: Lipase today is down trending at 1526 White blood cell count increased from 22.4-25.1 despite Rocephin---changed to Zosyn. Unclear if this is just inflammatory or if there is a bacterial component. CT did some some fluid surrounding the pelvis. Patient has been afebrile but has persistent tachycardia. Blood cultures have been drawn, UA is negative. (2) Alcohol abuse: Code(s): F10.10 - Alcohol abuse, uncomplicated Status: Acute Assessment and Plan: patient reports drinking 6 drinks a day during the week and increased consumption on weekends. patient with persistent tachycardia and hypertension. CIWA protocol ordered scheduled Librium ordered p.r.n. Ativan for [place] Zofran for nausea seizure precaution telemetry (3) Elevated liver transaminase level: Code(s): R74.01 - Elevation of levels of liver transaminase levels Status: Acute Assessment and Plan: See above (4) Hepatic steatosis: Code(s): K76.0 - Fatty (change of) liver, not elsewhere classified Status: Acute Assessment and Plan: See above (5) Elevated lipase: Code(s): R74.8 - Abnormal levels of other serum enzymes Status: Acute Assessment and Plan: See above (6) Nausea and vomiting: Qualifiers: Vomiting type: bilious vomiting Qualified Code(s): R11.14 - Bilious vomiting Code(s): R11.2 - Nausea with vomiting, unspecified Status: Acute (7) Leukocytosis: Qualifiers: Leukocytosis type: unspecified Qualified Code(s): D72.829 - Elevated white blood cell count, unspecified Code(s): D72.829 - Elevated white blood cell count, unspecified Status: Acute Assessment and Plan: Likely due to pain/vomiting however will give Rocephin due to peripancreatic fluid and leukocytosis 02/25: SIRS criteria met with leukocytosis and tachycardia in the 120 WBC increased today despite Rocephin. Will d/c and switch to Zosyn. Blood cultures ordered, u/a negative remains afebrile (8) DENISE on CPAP: Code(s): G47.33 - Obstructive sleep apnea (adult) (pediatric) Status: Acute Assessment and Plan: Home CPAP if available please (9) Hypertension: Code(s): I10 - Essential (primary) hypertension Status: Acute Assessment and Plan: Continue home medications Likely exacerbated by acute pain/nausea/vomiting 02/25: blood pressures reviewed and patient continues to be HTN 150-180/80-90's, HR tachycardic in the 120's Continuing lisinopril, metoprolol, hydrochlorothiazide elevation could also be related to possible alcohol withdrawal--- CIWA added Plan Feeding: clear liquid diet Analgesia: Tylenol, Dilaudid Thromboembolic prophylaxis: SCDs Ulcer prophylaxis: Protonix Glycemic control: hemoglobin A1c 5.6%, monitor blood gl
[2024-02-26 09:19] LABS: Lipase 1526 U/L (23-300)
[2024-02-26] MEDS: PANTOPRAZOLE 40 MG TABLET PO (09:23)
[2024-02-26] MEDS: PIPERACILLN/TAZ 3.375GM/NS50ML 3.375 GM/50 ML BAG IVPB ×3 (09:23→17:12)
[2024-02-26] MEDS: THIAMINE HCL 200 MG/2 ML VIAL 100 MG IV PUSH (09:24)
[2024-02-26] MEDS: lisinopriL 20 MG TABLET PO (09:24)
[2024-02-26] MEDS: hydroCHLOROthiazide 12.5 MG CAPSULE PO (09:24)
[2024-02-26] MEDS: METOPROLOL SUCCINATE EXT REL 50 MG TABCR PO (09:24)
[2024-02-26] MEDS: POTASSIUM CHLORIDE 20 MEQ ER TABLET 40 MEQ PO (09:24)
[2024-02-26] MEDS: chlordiazePOXIDE (*CRX) 25 MG CAPSULE PO ×2 (11:23→17:11)
[2024-02-26 13:23] LABS: Amylase 240 U/L (30-110)
[2024-02-26] MEDS: SIMETHICONE 125 MG CHEW TAB PO ×2 (16:18→21:00)
[2024-02-26 17:32] LABS: Glucose Point of Care 122 mg/dl (65-105)
--- NOTE | 2024-02-26 17:32 | WPDGIPROGNO ---
Progress Note: A&P Assessment and Plan (1) Acute pancreatitis: Qualifiers: Acute pancreatitis complication: no infection or necrosis Pancreatitis type: idiopathic Qualified Code(s): K85.00 - Idiopathic acute pancreatitis without necrosis or infection Code(s): K85.90 - Acute pancreatitis without necrosis or infection, unspecified Status: Acute Assessment and Plan: wonder if could be related to alcohol continue medical support pain meds, diet as tolerated, fluids (2) Alcohol abuse: Code(s): F10.10 - Alcohol abuse, uncomplicated Status: Acute Assessment and Plan: thiamine he was drinking more than usual before admission [facility] protocol (3) Nausea and vomiting: Qualifiers: Vomiting type: bilious vomiting Qualified Code(s): R11.14 - Bilious vomiting Code(s): R11.2 - Nausea with vomiting, unspecified Status: Acute (4) Transaminitis: Code(s): R74.01 - Elevation of levels of liver transaminase levels Status: Acute Assessment and Plan: monitor (5) Hepatic steatosis: Code(s): K76.0 - Fatty (change of) liver, not elsewhere classified Status: Acute (6) Leukocytosis: Qualifiers: Leukocytosis type: unspecified Qualified Code(s): D72.829 - Elevated white blood cell count, unspecified Code(s): D72.829 - Elevated white blood cell count, unspecified Status: Acute Subjective Date/time seen: 02/26/24 17:32 Interval history: still bloating and abdominal pain but improved anxious RN to get new IV access Review of Systems Review of Systems: All systems reviewed & are unremarkable except as noted in HPI and below Exam Const: General: cooperative, healthy appearing, comfortable, no acute distress and well developed Orientation/consciousness: oriented to person, oriented to place, oriented to time and patient oriented x3 HENMT: Head: normal to inspection, normocephalic and atraumatic Mouth: Yes moist mucous membranes Eyes: General: appearance normal, both eyes and all related structures Sclera: sclerae normal Neck: Neck: normal visual inspection Chest: Chest palpation & inspection: normal inspection of the chest Resp: Effort & Inspection: normal respiratory effort and able to speak in complete sentences Auscultation: clear to auscultation bilaterally Cardio: Rate: regular rate Rhythm: regular rhythm GI: Inspection: normal to inspection GI Palp: Yes Soft to palpation, Yes Firmness to palpation present (GI) and Yes Tenderness to palpation present (GI) (generalized to palpation) Auscultation: normal bowel sounds Other: mild abdominal distention Skin: General skin exam: normal color Neuro: General: oriented to person, oriented to place, oriented to time and patient oriented x3 Speech: normal speech Extrem: General: normal to inspection Psych: Appearance: grossly normal Objective Data Vital Signs Vital Signs: Vital Signs - 24 hr 02/25/24 20:55 02/25/24 21:25 02/25/24 21:31 Temperature 96.3 F L Pulse Rate 135 H 128 H Pulse Rate [Apical] Respiratory Rate 20 Blood Pressure 184/120 H Pulse Oximetry 92 Oxygen Delivery CPAP 02/25/24 21:00 02/25/24 23:45 02/26/24 04:35 Temperature 98 F 97.4 F L Pulse Rate 112 H 124 H Pulse Rate [Apical] Respiratory Rate 18 20 Blood Pressure 184/124 H 150/98 H 151/86 H Pulse Oximetry 92 94 Oxygen Delivery 02/26/24 08:21 02/26/24 09:24 02/26/24 08:15 Temperature Pulse Rate 116 H Pulse Rate [Apical] 120 H Respiratory Rate Blood Pressure Pulse Oximetry 93 Oxygen Delivery Room Air 02/26/24 12:00 02/26/24 12:00 02/26/24 16:00 Temperature 98.4 F 97.2 F L Pulse Rate 124 H 127 H 135 H Pulse Rate [Apical] Respiratory Rate 12 16 Blood Pressure 135/97 H 138/80 Pulse Oximetry 92 92 Oxygen Delivery 02/26/24 16:00 Temperature Pulse Rate 141 H Pulse Rate [Apical] Respi
[2024-02-26] MEDS: HYDROcodone/acetaminophen (*CRX) 5-325 MG TABLET 2 TAB PO (18:03)
[2024-02-26 22:44] LABS: Glucose Point of Care 113 mg/dl (65-105)
[2024-02-27] VITALS (10 sets, daily range): BP systolic 143–171; BP diastolic 80–95; PULSE 112–130; RESP 18–20; TEMP 36–37.7; O2SAT 92–94
[2024-02-27] MEDS: chlordiazePOXIDE (*CRX) 25 MG CAPSULE PO ×5 (00:12→23:56)
[2024-02-27] MEDS: HYDROcodone/acetaminophen (*CRX) 5-325 MG TABLET 2 TAB PO ×3 (00:12→20:31)
[2024-02-27] MEDS: PIPERACILLN/TAZ 3.375GM/NS50ML 3.375 GM/50 ML BAG IVPB ×5 (00:13→23:58)
[2024-02-27] MEDS: LACTATED RINGERS 1,000 ML 125 ML IV CONT (03:50)
[2024-02-27 04:56] LABS: Glucose Point of Care 97 mg/dl (65-105)
[2024-02-27 05:26] LABS: Hematocrit 42.9 % (42.0-52.0); Mean Corpuscular HGB Conc 32.6 g/dl (32-36); Mean Corpuscular Hemoglobin 33.8 pg (26-34); Mean Corpuscular Volume 103.6 fl (80-100); Mean Platelet Volume 9.8 fl (7.4-10.4); Platelet Count Result 166 k/mm3 (150-375); Red Blood Count 4.14 M/mm3 (4.6-6.20); Red Cell Distribution Width 13.2 % (11.5-14.5); White Blood Count 18.1 K/mm3 (4.5-10.0)
[2024-02-27 05:44] LABS: Alanine Aminotransferase 31 U/L (6-50); Albumin Level 3.4 g/dL (3.5-5.1); Alkaline Phosphatase 55 U/L (38-126); Anion Gap 5 mmol/L (4-12); Aspartate Amino Transferase 36 U/L (17-59); Bilirubin,Total 1.2 mg/dL (0.2-1.3); Blood Urea Nitrogen 16 mg/dL (9-20); Calcium 7.3 mg/dL (8.4-10.2); Carbon Dioxide 24 mmol/L (22-30); Chloride 98 mmol/L (98-107); Estimated CRCL calculation 144 ml/min; Estimated Glomerular Filt Rate > 60; Glucose 99 mg/dL (65-110); Magnesium 2.6 mg/dL (1.6-2.3); Potassium 3.2 mmol/L (3.4-5.0); Sodium 127 mmol/L (137-145)
[2024-02-27 05:50] LABS: Band Neutrophils Percent 10 % (0-6); Monocytes Absolute Manual 1.26 K/mm3 (0.1-0.90); Monocytes Percent Manual 7 % (3-9); Neutrophils Absolute Manual 15.92 K/mm3 (1.3-6.7); Neutrophils Percent Manual 78 % (46-73); Platelet Estimate Adequate (Adequate); Schistocytes None Seen; Total Cells Counted 100
[2024-02-27 06:14] LABS: CRP 35.4 mg/dL (<1.0)
--- NOTE | 2024-02-27 07:03 | PM.IMPN ---
Progress Note: A&P Assessment and Plan (1) Acute pancreatitis: Qualifiers: Acute pancreatitis complication: no infection or necrosis Pancreatitis type: idiopathic Qualified Code(s): K85.00 - Idiopathic acute pancreatitis without necrosis or infection Code(s): K85.90 - Acute pancreatitis without necrosis or infection, unspecified Status: Acute Assessment and Plan: Elevated lipase with CT findings of pancreatitis, likely exacerbated by weekend ETOH consumption over 4 nights where he drank heavier than normal Patient describes a prior episode that was similar but not as severe where he had tachycardia, pain, nausea, vomiting and was ultimately started on metoprolol due to HTN and tachycardia Initial bowel rest with IV hydration followed by clears and ADAT to bland diet Trend CMP and lipase MRCP shows peripancreatic fluid, no choledocholithiasis noted Diffuse fatty liver on imaging GI consulted, appreciate recommendations and workup initiation ACHS or Q6H fingerstick glucose with low dose SSI and hypoglycemia protocol vitals q.4 telemetry ordered 02/25: Lipase today is down trending at 1526 White blood cell count increased from 22.4-25.1 despite Rocephin---changed to Zosyn. Unclear if this is just inflammatory or if there is a bacterial component. CT did some some fluid surrounding the pelvis. Patient has been afebrile but has persistent tachycardia. Blood cultures have been drawn, UA is negative. 02/26: White count is improving, left shift is present with bands 10%. Down to 18 today from 25.1---continue Zosyn Heart rate is slightly improved---115 bmp Blood cultures are pending Blood glucose is controlled (2) Alcohol abuse: Code(s): F10.10 - Alcohol abuse, uncomplicated Status: Acute Assessment and Plan: patient reports drinking 6 drinks a day during the week and increased consumption on weekends. patient with persistent tachycardia and hypertension. CIWA protocol ordered scheduled Librium ordered p.r.n. Ativan for CIWA Zofran for nausea seizure precaution telemetry 02/26: CIWA the last 24 hours was 7 or less (3) Elevated liver transaminase level: Code(s): R74.01 - Elevation of levels of liver transaminase levels Status: Acute Assessment and Plan: See above (4) Hepatic steatosis: Code(s): K76.0 - Fatty (change of) liver, not elsewhere classified Status: Acute Assessment and Plan: See above (5) Elevated lipase: Code(s): R74.8 - Abnormal levels of other serum enzymes Status: Acute Assessment and Plan: See above (6) Nausea and vomiting: Qualifiers: Vomiting type: bilious vomiting Qualified Code(s): R11.14 - Bilious vomiting Code(s): R11.2 - Nausea with vomiting, unspecified Status: Acute Assessment and Plan: see above (7) Leukocytosis: Qualifiers: Leukocytosis type: unspecified Qualified Code(s): D72.829 - Elevated white blood cell count, unspecified Code(s): D72.829 - Elevated white blood cell count, unspecified Status: Acute Assessment and Plan: Likely due to pain/vomiting however will give Rocephin due to peripancreatic fluid and leukocytosis 02/25: SIRS criteria met with leukocytosis and tachycardia in the 120 WBC increased today despite Rocephin. Will d/c and switch to Zosyn. Blood cultures ordered, u/a negative remains afebrile 02/26 white count is downtrending afebrile persistent tachycardia but is improving (8) DENISE on CPAP: Code(s): G47.33 - Obstructive sleep apnea (adult) (pediatric) Status: Acute Assessment and Plan: Home CPAP if available please (9) Hypertension: Code(s): I10 - Essential (primary) hypertension Status: Acute Assessment and Plan: Continue home medications Likely exacerbated by acute pain/nausea/vomiting 02/25: blood pressure
[2024-02-27 08:02] LABS: Lipase 498 U/L (23-300)
[2024-02-27] MEDS: THIAMINE HCL 200 MG/2 ML VIAL 100 MG IV PUSH (08:07)
[2024-02-27] MEDS: lisinopriL 20 MG TABLET PO (08:07)
[2024-02-27] MEDS: hydroCHLOROthiazide 12.5 MG CAPSULE PO (08:07)
[2024-02-27] MEDS: SIMETHICONE 125 MG CHEW TAB PO ×4 (08:07→20:30)
[2024-02-27] MEDS: PANTOPRAZOLE 40 MG TABLET PO (08:07)
[2024-02-27] MEDS: METOPROLOL SUCCINATE EXT REL 50 MG TABCR PO (08:07)
[2024-02-27] MEDS: POTASSIUM/PHOSPHORUS/SODIUM 1.5 GM PACKET 2 PACKET PO (08:11)
[2024-02-27] MEDS: METOPROLOL SUCCINATE EXT REL 25 MG TABCR PO (11:45)
[2024-02-27 12:02] LABS: Alpha-1-Antitrypsin, QN 151 mg/dL (83-199); Ceruloplasmin 21 mg/dL (14-30)
[2024-02-27 12:39] LABS: Alpha Fetoprotein Tumor Marker 3.5 ng/mL (<6.1)
--- NOTE | 2024-02-27 17:18 | WPDGIPROGNO ---
Progress Note: A&P Assessment and Plan (1) Acute pancreatitis: Qualifiers: Acute pancreatitis complication: no infection or necrosis Pancreatitis type: idiopathic Qualified Code(s): K85.00 - Idiopathic acute pancreatitis without necrosis or infection Code(s): K85.90 - Acute pancreatitis without necrosis or infection, unspecified Status: Acute Assessment and Plan: clinically better tolerating diet but still eating small portions (2) Leukocytosis: Qualifiers: Leukocytosis type: unspecified Qualified Code(s): D72.829 - Elevated white blood cell count, unspecified Code(s): D72.829 - Elevated white blood cell count, unspecified Status: Acute Assessment and Plan: trending down probably from pancreatitis (3) Transaminitis: Code(s): R74.01 - Elevation of levels of liver transaminase levels Status: Acute Assessment and Plan: normalization of transaminase (4) Elevated liver transaminase level: Code(s): R74.01 - Elevation of levels of liver transaminase levels Status: Acute Assessment and Plan: resolved (5) Nausea and vomiting: Qualifiers: Vomiting type: bilious vomiting Qualified Code(s): R11.14 - Bilious vomiting Code(s): R11.2 - Nausea with vomiting, unspecified Status: Acute Assessment and Plan: resolved (6) Alcohol abuse: Code(s): F10.10 - Alcohol abuse, uncomplicated Status: Acute Assessment and Plan: encourage to stop Subjective Date/time seen: 02/27/24 17:18 Interval history: no more nausea, eating but small amount- getting bloated, more comfortable Review of Systems Review of Systems: All systems reviewed & are unremarkable except as noted in HPI and below Exam Const: General: cooperative, healthy appearing, comfortable, no acute distress and well developed Orientation/consciousness: patient oriented x3 HENMT: Head: normal to inspection, normocephalic and atraumatic Mouth: Yes moist mucous membranes Eyes: General: appearance normal, both eyes and all related structures Sclera: sclerae normal Neck: Neck: normal visual inspection Chest: Chest palpation & inspection: normal inspection of the chest Resp: Effort & Inspection: normal respiratory effort and able to speak in complete sentences Auscultation: clear to auscultation bilaterally Cardio: Rate: regular rate Rhythm: regular rhythm GI: Inspection: normal to inspection GI Palp: Yes Soft to palpation and Yes Tenderness to palpation present (GI) (less pain) Auscultation: normal bowel sounds Other: mild abdominal distention Skin: General skin exam: normal color Neuro: General: oriented to person, oriented to place, oriented to time and patient oriented x3 Speech: normal speech Extrem: General: normal to inspection Psych: Appearance: grossly normal Objective Data Vital Signs Vital Signs: Vital Signs - 24 hr 02/26/24 20:00 02/26/24 20:00 02/27/24 00:00 Temperature 96.5 F L 96.8 F L Pulse Rate 96 130 H Pulse Rate [Apical] 130 H Respiratory Rate 20 18 Blood Pressure 162/81 H 143/88 H Pulse Oximetry 95 92 Oxygen Delivery 02/27/24 00:00 02/26/24 23:00 02/27/24 04:00 Temperature Pulse Rate Pulse Rate [Apical] 121 H 119 H Respiratory Rate Blood Pressure Pulse Oximetry Oxygen Delivery CPAP 02/27/24 04:00 02/26/24 20:00 02/27/24 00:00 Temperature 97 F L Pulse Rate 122 H 125 H 124 H Pulse Rate [Apical] Respiratory Rate 18 Blood Pressure 152/80 H Pulse Oximetry 93 Oxygen Delivery 02/27/24 04:00 02/27/24 08:07 02/27/24 08:00 Temperature 98.3 F Pulse Rate 115 H 120 H 129 H Pulse Rate [Apical] Respiratory Rate 18 Blood Pressure 152/95 H Pulse Oximetry 93 Oxygen Delivery 02/27/24 09:19 02/27/24 08:00 02/27/24 11:45 Temperature Pulse Rate 130 H Pulse Rate [Apical] Respiratory Rate
[2024-02-28] VITALS (18 sets, daily range): BP systolic 140–204; BP diastolic 79–106; PULSE 115–145; RESP 16–20; TEMP 35.8–37.4; O2SAT 92–95
[2024-02-28] MEDS: hydrALAZINE HCL 20 MG/ML VIAL 10 MG IV PUSH (01:08)
[2024-02-28] MEDS: HYDROmorphone HCL INJ (*CRX) 1 MG/ML SYR IV PUSH (01:08)
[2024-02-28] MEDS: chlordiazePOXIDE (*CRX) 25 MG CAPSULE PO (05:25)
[2024-02-28] MEDS: PIPERACILLN/TAZ 3.375GM/NS50ML 3.375 GM/50 ML BAG IVPB ×3 (05:25→18:50)
[2024-02-28 05:58] LABS: Hematocrit 38.8 % (42.0-52.0); Hemoglobin 12.7 g/dL (14.0-18.0); Immature Platelet Fraction Pct 4.3 % (0.9-11.2); Mean Corpuscular HGB Conc 32.7 g/dl (32-36); Mean Corpuscular Hemoglobin 33.7 pg (26-34); Mean Corpuscular Volume 102.9 fl (80-100); Mean Platelet Volume 10.1 fl (7.4-10.4); Platelet Count Result 194 k/mm3 (150-375); Red Blood Count 3.77 M/mm3 (4.6-6.20); Red Cell Distribution Width 13.2 % (11.5-14.5)
[2024-02-28] MEDS: hydroCHLOROthiazide 12.5 MG CAPSULE PO (06:26)
[2024-02-28] MEDS: METOPROLOL SUCCINATE EXT REL 25 MG TABCR 75 MG PO (06:26)
[2024-02-28] MEDS: SIMETHICONE 125 MG CHEW TAB PO (06:26)
[2024-02-28] MEDS: lisinopriL 20 MG TABLET PO (06:27)
[2024-02-28 06:36] LABS: Alanine Aminotransferase 27 U/L (6-50); Albumin Level 3.5 g/dL (3.5-5.1); Alkaline Phosphatase 67 U/L (38-126); Anion Gap 7 mmol/L (4-12); Aspartate Amino Transferase 38 U/L (17-59); Bilirubin,Total 1.1 mg/dL (0.2-1.3); Blood Urea Nitrogen 10 mg/dL (9-20); Calcium 7.7 mg/dL (8.4-10.2); Carbon Dioxide 25 mmol/L (22-30); Chloride 94 mmol/L (98-107); Estimated CRCL calculation 187 ml/min; Estimated Glomerular Filt Rate > 60; Glucose 84 mg/dL (65-110); Magnesium 2.7 mg/dL (1.6-2.3); Potassium 3.2 mmol/L (3.4-5.0); Sodium 126 mmol/L (137-145)
[2024-02-28 06:45] LABS: CRP 35.7 mg/dL (<1.0)
[2024-02-28 06:54] LABS: Band Neutrophils Percent 8 % (0-6); Eosinophils Absolute Manual 0.16 K/mm3 (0.02-0.50); Eosinophils Percent Manual 1 % (0-4); Lymphocytes Absolute Manual 0.64 K/mm3 (1.1-4.5); Monocytes Absolute Manual 0.32 K/mm3 (0.1-0.90); Monocytes Percent Manual 2 % (3-9); Neutrophils Absolute Manual 14.88 K/mm3 (1.3-6.7); Neutrophils Percent Manual 85 % (46-73); Platelet Estimate Adequate (Adequate); Total Cells Counted 100
[2024-02-28 06:55] LABS: Hypochromasia 1+; Schistocytes None Seen
--- NOTE | 2024-02-28 07:21 | P.PNIM_ITS ---
Progress Note: A&P Assessment and Plan (1) Acute pancreatitis: Qualifiers: Acute pancreatitis complication: no infection or necrosis Pancreatitis type: idiopathic Qualified Code(s): K85.00 - Idiopathic acute pancreatitis without necrosis or infection Code(s): K85.90 - Acute pancreatitis without necrosis or infection, unspecified Status: Acute Assessment and Plan: Elevated lipase with CT findings of pancreatitis, likely exacerbated by weekend ETOH consumption over 4 nights where he drank heavier than normal Patient describes a prior episode that was similar but not as severe where he had tachycardia, pain, nausea, vomiting and was ultimately started on metoprolol due to HTN and tachycardia Initial bowel rest with IV hydration followed by clears and ADAT to bland diet Trend CMP and lipase MRCP shows peripancreatic fluid, no choledocholithiasis noted Diffuse fatty liver on imaging GI consulted, appreciate recommendations and workup initiation ACHS or Q6H fingerstick glucose with low dose SSI and hypoglycemia protocol vitals q.4 telemetry ordered [place] on ETOH abuse 02/25: * Lipase today is down trending at 1526 * White blood cell count increased from 22.4-25.1 despite Rocephin---changed to Zosyn. Unclear if this is just inflammatory or if there is a bacterial component. CT did some some fluid surrounding the pelvis. * Patient has been afebrile but has persistent tachycardia. * Blood cultures have been drawn, UA is negative. 02/26: * White count is improving, left shift is present with bands 10%. Down to 18 today from 25.1---continue Zosyn * Heart rate is slightly improved---115 bmp * Blood cultures are pending * Blood glucose is controlled 02/27: * WBC continues to downtrend. 25.1-->18.--->16 * Blood culture with NGTD * Tmax 99.4 * Repeat CT abdomen and pelvis with acute interstitial pancreatitis with increasing peripancreatic stranding, acute peripancreatic fluid collections. New bilateral pleural effusions seen on CT. Stopping IVF for now as lipase has improved. I spoke with Dr Blanco who will see him this afternoon. He suspects this is just normal course of pancreatitis and is thinking his antibiotics can be discontinued as well. (2) Hypertension: Code(s): I10 - Essential (primary) hypertension Status: Acute Assessment and Plan: Continue home medications Likely exacerbated by acute pain/nausea/vomiting 02/25: * blood pressures reviewed and patient continues to be HTN 150-180/80-90's, HR tachycardic in the 120's * Continuing lisinopril, metoprolol, hydrochlorothiazide * elevation could also be related to possible alcohol withdrawal--- CIWA added 02/26: * Review of the chart shows his blood pressures run HTN * Better control today with systolic 140-160's/80's * Could increase metoprolol for better rate and BP control--monitor for now 02/27: * HTN overnight. Blood pressures ranging 204/106 to 154/92 * Increased HCTZ, Metoprolol was increased yesterday as well * Stopping IVF (3) Shortness of breath: Code(s): R06.02 - Shortness of breath Status: Acute Assessment and Plan: Dyspnea with exertion, expiratory wheeze, and tachycardia * Pulse ox 92% on room air * CTA chest shows new pleural effusions likely from IVF, no pneumonia. IVF stopped * BNP, D-dimer ordered * Lasix 40 mg IVP one time * Levalbuterol now and q 6 hours * Incentive spirometry (4) Leukocytosis: Qualifiers: Leukocytosis type: unspecified Qualified Code(s): D72.829 - Elevated
--- NOTE | 2024-02-28 07:21 | PM.IMPN ---
Progress Note: A&P Assessment and Plan (1) Acute pancreatitis: Qualifiers: Acute pancreatitis complication: no infection or necrosis Pancreatitis type: idiopathic Qualified Code(s): K85.00 - Idiopathic acute pancreatitis without necrosis or infection Code(s): K85.90 - Acute pancreatitis without necrosis or infection, unspecified Status: Acute Assessment and Plan: Elevated lipase with CT findings of pancreatitis, likely exacerbated by weekend ETOH consumption over 4 nights where he drank heavier than normal Patient describes a prior episode that was similar but not as severe where he had tachycardia, pain, nausea, vomiting and was ultimately started on metoprolol due to HTN and tachycardia Initial bowel rest with IV hydration followed by clears and ADAT to bland diet Trend CMP and lipase MRCP shows peripancreatic fluid, no choledocholithiasis noted Diffuse fatty liver on imaging GI consulted, appreciate recommendations and workup initiation ACHS or Q6H fingerstick glucose with low dose SSI and hypoglycemia protocol vitals q.4 telemetry ordered [place] on ETOH abuse 02/25: Lipase today is down trending at 1526 White blood cell count increased from 22.4-25.1 despite Rocephin---changed to Zosyn. Unclear if this is just inflammatory or if there is a bacterial component. CT did some some fluid surrounding the pelvis. Patient has been afebrile but has persistent tachycardia. Blood cultures have been drawn, UA is negative. 02/26: White count is improving, left shift is present with bands 10%. Down to 18 today from 25.1---continue Zosyn Heart rate is slightly improved---115 bmp Blood cultures are pending Blood glucose is controlled 02/27: WBC continues to downtrend. 25.1-->18.--->16 Blood culture with NGTD Tmax 99.[address] abdomen and pelvis with acute interstitial pancreatitis with increasing peripancreatic stranding, acute peripancreatic fluid collections. New bilateral pleural effusions seen on CT. Stopping IVF for now as lipase has improved. I spoke with Dr Blanco who will see him this afternoon. He suspects this is just normal course of pancreatitis and is thinking his antibiotics can be discontinued as well. (2) Hypertension: Code(s): I10 - Essential (primary) hypertension Status: Acute Assessment and Plan: Continue home medications Likely exacerbated by acute pain/nausea/vomiting 02/25: blood pressures reviewed and patient continues to be HTN 150-180/80-90's, HR tachycardic in the 120's Continuing lisinopril, metoprolol, hydrochlorothiazide elevation could also be related to possible alcohol withdrawal--- GLYNN added 02/26: Review of the chart shows his blood pressures run HTN Better control today with systolic 140-160's/80's Could increase metoprolol for better rate and BP control--monitor for now 02/27: HTN overnight. Blood pressures ranging 204/106 to 154/92 Increased HCTZ, Metoprolol was increased yesterday as well Stopping IVF (3) Shortness of breath: Code(s): R06.02 - Shortness of breath Status: Acute Assessment and Plan: Dyspnea with exertion, expiratory wheeze, and tachycardia Pulse ox 92% on room air CTA chest shows new pleural effusions likely from IVF, no pneumonia. IVF stopped BNP, D-dimer ordered Lasix 40 mg IVP one time Levalbuterol now and q 6 hours Incentive spirometry (4) Leukocytosis: Qualifiers: Leukocytosis type: unspecified Qualified Code(s): D72.829 - Elevated white blood cell count, unspecified Code(s): D72.829 - Elevated white blood cell count, unspecified Status: Acute Assessment and Plan: Likely due to pain/vomiting however will give Rocephin due to peripancreatic fluid and leukocytosis 02/25: SIRS criteria met with leukocytosis and tachycardia in the 120 WBC increased today despite Rocephin. Will d/c and switch to Zosyn. Blood cultu
[2024-02-28] MEDS: POTASSIUM CHLORIDE 20 MEQ ER TABLET 40 MEQ PO (08:43)
[2024-02-28] MEDS: THIAMINE HCL 200 MG/2 ML VIAL 100 MG IV PUSH (08:44)
[2024-02-28] MEDS: PANTOPRAZOLE 40 MG TABLET PO (08:45)
[2024-02-28] MEDS: hydroCHLOROthiazide 12.5 MG CAPSULE 25 MG PO (08:45)
--- NOTE | 2024-02-28 11:45 | ECG_ITS ---
Test Date: 2024-02-28 11:57:17 Measurements Intervals [place] Rate: 129 P: 63 IA: 152 QRS: -2 QRSD: 105 T: 51 QT: 326 QTc: 479 Interpretive Statements SINUS TACHYCARDIA RIGHT VENTRICULAR CONDUCTION DELAY LEFTWARD AXIS ABNORMAL ECG No previous ECG available for comparison Electronically Signed On 02-28-2024 15:49:36 CDT by Shreyas Posey M.D.
[2024-02-28 11:57] LABS: Glucose Point of Care 95 mg/dl (65-105)
[2024-02-28] MEDS: LEVALBUTEROL NEB 1.25 MG/3 ML 0.63 MG INHALATION ×2 (12:05→20:15)
[2024-02-28] MEDS: FUROSEMIDE INJ 40 MG/4 ML VIAL IV PUSH (13:30)
[2024-02-28] MEDS: HYDROcodone/acetaminophen (*CRX) 5-325 MG TABLET 1 TAB PO (14:12)
[2024-02-28 14:23] LABS: NT Pro B Type Natriuretic Pept 46 pg/mL (19.9-100)
--- NOTE | 2024-02-28 14:58 | WPDGIPROGNO ---
Progress Note: A&P Assessment and Plan (1) Acute pancreatitis: Qualifiers: Acute pancreatitis complication: no infection or necrosis Pancreatitis type: idiopathic Qualified Code(s): K85.00 - Idiopathic acute pancreatitis without necrosis or infection Code(s): K85.90 - Acute pancreatitis without necrosis or infection, unspecified Status: Acute Assessment and Plan: tolerating diet but still eating small portions Repeat CT scan showed peripancreatic inflammation, no necrosis, no abscess. CTA chest no PE continue medical support (2) Leukocytosis: Qualifiers: Leukocytosis type: unspecified Qualified Code(s): D72.829 - Elevated white blood cell count, unspecified Code(s): D72.829 - Elevated white blood cell count, unspecified Status: Acute Assessment and Plan: trending down probably from pancreatitis, should be ok to discontinue antibiotics (3) Transaminitis: Code(s): R74.01 - Elevation of levels of liver transaminase levels Status: Acute Assessment and Plan: transaminases normalized now (4) Nausea and vomiting: Qualifiers: Vomiting type: bilious vomiting Qualified Code(s): R11.14 - Bilious vomiting Code(s): R11.2 - Nausea with vomiting, unspecified Status: Acute Assessment and Plan: resolved (5) Alcohol abuse: Code(s): F10.10 - Alcohol abuse, uncomplicated Status: Acute Assessment and Plan: encourage to stop Subjective Date/time seen: 02/28/24 14:58 Interval history: still bloated after eating and some abdominal discomfort Review of Systems Review of Systems: All systems reviewed & are unremarkable except as noted in HPI and below Exam Const: General: cooperative, no acute distress and well developed Orientation/consciousness: patient oriented x3 HENMT: Head: normal to inspection and normocephalic Eyes: General: appearance normal, both eyes and all related structures Sclera: sclerae normal Neck: Neck: normal visual inspection Chest: Chest palpation & inspection: normal inspection of the chest Resp: Effort & Inspection: normal respiratory effort and able to speak in complete sentences Auscultation: clear to auscultation bilaterally Cardio: Rate: regular rate Rhythm: regular rhythm GI: Inspection: normal to inspection GI Palp: Yes Soft to palpation and Yes Tenderness to palpation present (GI) (less pain) Auscultation: normal bowel sounds Other: mild abdominal distention Skin: General skin exam: normal color Neuro: General: oriented to person, oriented to place, oriented to time and patient oriented x3 Speech: normal speech Extrem: General: normal to inspection Psych: Appearance: grossly normal Objective Data Vital Signs Vital Signs: Vital Signs - 24 hr 02/27/24 16:00 02/27/24 20:10 02/27/24 20:00 Temperature 98.6 F 99.1 F Pulse Rate 129 H 116 H Pulse Rate [Apical] 112 H Respiratory Rate 18 20 Blood Pressure 171/88 H 148/94 H Pulse Oximetry 93 94 Oxygen Delivery 02/27/24 20:00 02/28/24 00:00 02/28/24 00:35 Temperature 99.2 F Pulse Rate 117 H 120 H Pulse Rate [Apical] 115 H Respiratory Rate 18 Blood Pressure 204/106 H Pulse Oximetry 93 Oxygen Delivery 02/28/24 02:08 02/27/24 22:45 02/28/24 05:20 Temperature 99.4 F Pulse Rate 125 H Pulse Rate [Apical] Respiratory Rate 20 Blood Pressure 154/92 H 179/89 H Pulse Oximetry 93 Oxygen Delivery CPAP 02/28/24 06:26 02/28/24 00:00 02/28/24 04:00 Temperature Pulse Rate 128 H 116 H 118 H Pulse Rate [Apical] Respiratory Rate Blood Pressure Pulse Oximetry Oxygen Delivery 02/28/24 08:00 02/28/24 08:00 02/28/24 08:15 Temperature 97.9 F Pulse Rate 128 H 132 H Pulse Rate [Apical] Respiratory Rate 20 Blood Pressure 140/79 Pulse Oximetry 93 92 Oxygen Delivery Room Air 02/28/24 08:00 02/28/24 08:00
[2024-02-28 19:00] LABS: Glucose Point of Care 98 mg/dl (65-105)
[2024-02-28] MEDS: guaiFENesin 12 HR 600 MG TABCR 1200 MG PO (20:24)
[2024-02-28] MEDS: MELATONIN 3 MG TABLET PO (22:14)
[2024-02-29] VITALS (18 sets, daily range): BP systolic 138–177; BP diastolic 60–98; PULSE 89–136; RESP 16–20; TEMP 36–37.5; O2SAT 92–98
[2024-02-29] MEDS: PIPERACILLN/TAZ 3.375GM/NS50ML 3.375 GM/50 ML BAG IVPB ×5 (00:22→23:30)
[2024-02-29] MEDS: LEVALBUTEROL NEB 1.25 MG/3 ML 0.63 MG INHALATION ×3 (02:50→18:22)
[2024-02-29] MEDS: HYDROcodone/acetaminophen (*CRX) 5-325 MG TABLET 2 TAB PO ×2 (03:18→23:30)
[2024-02-29] MEDS: LOPERAMIDE HCL 2 MG CAPSULE PO ×2 (06:13→21:38)
[2024-02-29 06:44] LABS: Hematocrit 38.4 % (42.0-52.0); Hemoglobin 13.2 g/dL (14.0-18.0); Mean Corpuscular HGB Conc 34.4 g/dl (32-36); Mean Corpuscular Hemoglobin 33.6 pg (26-34); Mean Corpuscular Volume 97.7 fl (80-100); Mean Platelet Volume 9.4 fl (7.4-10.4); Platelet Count Result 271 k/mm3 (150-375); Red Blood Count 3.93 M/mm3 (4.6-6.20); Red Cell Distribution Width 12.8 % (11.5-14.5)
[2024-02-29 06:53] LABS: Alanine Aminotransferase 35 U/L (6-50); Albumin Level 3.4 g/dL (3.5-5.1); Alkaline Phosphatase 105 U/L (38-126); Anion Gap 8 mmol/L (4-12); Aspartate Amino Transferase 53 U/L (17-59); Bilirubin,Total 0.9 mg/dL (0.2-1.3); Blood Urea Nitrogen 12 mg/dL (9-20); Calcium 8.3 mg/dL (8.4-10.2); Carbon Dioxide 28 mmol/L (22-30); Chloride 91 mmol/L (98-107); Estimated CRCL calculation 144 ml/min; Estimated Glomerular Filt Rate > 60; Glucose 103 mg/dL (65-110); Magnesium 2.5 mg/dL (1.6-2.3); Potassium 2.7 mmol/L (3.4-5.0); Sodium 127 mmol/L (137-145)
[2024-02-29 07:12] LABS: Band Neutrophils Percent 23 % (0-6); CRP 32.9 mg/dL (<1.0); Eosinophils Absolute Manual 0.17 K/mm3 (0.02-0.50); Eosinophils Percent Manual 1 % (0-4); Lymphocytes Absolute Manual 1.36 K/mm3 (1.1-4.5); Monocytes Absolute Manual 2.04 K/mm3 (0.1-0.90); Monocytes Percent Manual 12 % (3-9); Neutrophils Absolute Manual 13.43 K/mm3 (1.3-6.7); Neutrophils Percent Manual 56 % (46-73); Platelet Estimate Adequate (Adequate); Schistocytes None Seen; Total Cells Counted 100
--- NOTE | 2024-02-29 08:51 | P.PNIM_ITS ---
Progress Note: A&P Assessment and Plan (1) Acute pancreatitis: Qualifiers: Acute pancreatitis complication: no infection or necrosis Pancreatitis type: idiopathic Qualified Code(s): K85.00 - Idiopathic acute pancreatitis without necrosis or infection Code(s): K85.90 - Acute pancreatitis without necrosis or infection, unspecified Status: Acute Assessment and Plan: Elevated lipase with CT findings of pancreatitis, likely exacerbated by weekend ETOH consumption over 4 nights where he drank heavier than normal Patient describes a prior episode that was similar but not as severe where he had tachycardia, pain, nausea, vomiting and was ultimately started on metoprolol due to HTN and tachycardia Initial bowel rest with IV hydration followed by clears and ADAT to bland diet Trend CMP and lipase MRCP shows peripancreatic fluid, no choledocholithiasis noted Diffuse fatty liver on imaging GI consulted, appreciate recommendations and workup initiation ACHS or Q6H fingerstick glucose with low dose SSI and hypoglycemia protocol vitals q.4 telemetry ordered [place] on ETOH abuse 02/25: * Lipase today is down trending at 1526 * White blood cell count increased from 22.4-25.1 despite Rocephin---changed to Zosyn. Unclear if this is just inflammatory or if there is a bacterial component. CT did some some fluid surrounding the pelvis. * Patient has been afebrile but has persistent tachycardia. * Blood cultures have been drawn, UA is negative. 02/26: * White count is improving, left shift is present with bands 10%. Down to 18 today from 25.1---continue Zosyn * Heart rate is slightly improved---115 bmp * Blood cultures are pending * Blood glucose is controlled 02/27: * WBC continues to downtrend. 25.1-->18.--->16 * Blood culture with NGTD * Tmax 99.4 * Repeat CT abdomen and pelvis with acute interstitial pancreatitis with increasing peripancreatic stranding, acute peripancreatic fluid collections. New bilateral pleural effusions seen on CT. Stopping IVF for now as lipase has improved. I spoke with Dr Blanco who will see him this afternoon. He suspects this is just normal course of pancreatitis and is thinking his antibiotics can be discontinued as well. 02/28: * WBC 17.0 today, afebrile * continues with bandemia-23% * CRP slowly downtrending. 32.9 from 35 * Continue zosyn today (2) Hypertension: Code(s): I10 - Essential (primary) hypertension Status: Acute Assessment and Plan: Continue home medications Likely exacerbated by acute pain/nausea/vomiting 02/25: * blood pressures reviewed and patient continues to be HTN 150-180/80-90's, HR tachycardic in the 120's * Continuing lisinopril, metoprolol, hydrochlorothiazide * elevation could also be related to possible alcohol withdrawal--- CIWA added 02/26: * Review of the chart shows his blood pressures run HTN * Better control today with systolic 140-160's/80's * Could increase metoprolol for better rate and BP control--monitor for now 02/27: * HTN overnight. Blood pressures ranging 204/106 to 154/92 * Increased HCTZ, Metoprolol was increased yesterday as well * Stopping IVF (3) Shortness of breath: Code(s): R06.02 - Shortness of breath Status: Acute Assessment and Plan: Dyspnea with exertion, expiratory wheeze, and tachycardia * Pulse ox 92% on room air * CTA chest shows new pleural effusions likely from IVF, no pneumonia. IVF stopped * BNP, D-dimer ordered * Lasix 40 mg IVP one time * Levalbuterol now and q 6 hours * In
--- NOTE | 2024-02-29 08:51 | PM.IMPN ---
Progress Note: A&P Assessment and Plan (1) Acute pancreatitis: Qualifiers: Acute pancreatitis complication: no infection or necrosis Pancreatitis type: idiopathic Qualified Code(s): K85.00 - Idiopathic acute pancreatitis without necrosis or infection Code(s): K85.90 - Acute pancreatitis without necrosis or infection, unspecified Status: Acute Assessment and Plan: Elevated lipase with CT findings of pancreatitis, likely exacerbated by weekend ETOH consumption over 4 nights where he drank heavier than normal Patient describes a prior episode that was similar but not as severe where he had tachycardia, pain, nausea, vomiting and was ultimately started on metoprolol due to HTN and tachycardia Initial bowel rest with IV hydration followed by clears and ADAT to bland diet Trend CMP and lipase MRCP shows peripancreatic fluid, no choledocholithiasis noted Diffuse fatty liver on imaging GI consulted, appreciate recommendations and workup initiation ACHS or Q6H fingerstick glucose with low dose SSI and hypoglycemia protocol vitals q.4 telemetry ordered [place] on ETOH abuse 02/25: Lipase today is down trending at 1526 White blood cell count increased from 22.4-25.1 despite Rocephin---changed to Zosyn. Unclear if this is just inflammatory or if there is a bacterial component. CT did some some fluid surrounding the pelvis. Patient has been afebrile but has persistent tachycardia. Blood cultures have been drawn, UA is negative. 02/26: White count is improving, left shift is present with bands 10%. Down to 18 today from 25.1---continue Zosyn Heart rate is slightly improved---115 bmp Blood cultures are pending Blood glucose is controlled 02/27: WBC continues to downtrend. 25.1-->18.--->16 Blood culture with NGTD Tmax 99.[address] abdomen and pelvis with acute interstitial pancreatitis with increasing peripancreatic stranding, acute peripancreatic fluid collections. New bilateral pleural effusions seen on CT. Stopping IVF for now as lipase has improved. I spoke with Dr Blanco who will see him this afternoon. He suspects this is just normal course of pancreatitis and is thinking his antibiotics can be discontinued as well. 02/28: WBC 17.0 today, afebrile continues with bandemia-23% CRP slowly downtrending. 32.9 from 35 Continue zosyn today (2) Hypertension: Code(s): I10 - Essential (primary) hypertension Status: Acute Assessment and Plan: Continue home medications Likely exacerbated by acute pain/nausea/vomiting 02/25: blood pressures reviewed and patient continues to be HTN 150-180/80-90's, HR tachycardic in the 120's Continuing lisinopril, metoprolol, hydrochlorothiazide elevation could also be related to possible alcohol withdrawal--- CIWA added 02/26: Review of the chart shows his blood pressures run HTN Better control today with systolic 140-160's/80's Could increase metoprolol for better rate and BP control--monitor for now 02/27: HTN overnight. Blood pressures ranging 204/106 to 154/92 Increased HCTZ, Metoprolol was increased yesterday as well Stopping IVF (3) Shortness of breath: Code(s): R06.02 - Shortness of breath Status: Acute Assessment and Plan: Dyspnea with exertion, expiratory wheeze, and tachycardia Pulse ox 92% on room air CTA chest shows new pleural effusions likely from IVF, no pneumonia. IVF stopped BNP, D-dimer ordered Lasix 40 mg IVP one time Levalbuterol now and q 6 hours Incentive spirometry 02/28: Resolved after stopping IVF and 1 x dose of lasix. BNP was negative. No PE on CTA. Levalbuterol to prn. (4) Leukocytosis: Qualifiers: Leukocytosis type: unspecified Qualified Code(s): D72.829 - Elevated white blood cell count, unspecified Code(s): D72.829 - Elevated white blood cell count, unspecified Status: Acute Assessment and Plan: Likely due to
[2024-02-29] MEDS: POTASSIUM CHLORIDE INJ 40 MEQ in SODIUM CHLORIDE 0.9% IV 500 ML 130 MEQ IVPB (09:22)
[2024-02-29] MEDS: METOPROLOL SUCCINATE EXT REL 25 MG TABCR 75 MG PO (09:25)
[2024-02-29] MEDS: hydroCHLOROthiazide 12.5 MG CAPSULE 25 MG PO (09:25)
[2024-02-29] MEDS: PANTOPRAZOLE 40 MG TABLET PO (09:26)
[2024-02-29] MEDS: THIAMINE HCL 200 MG/2 ML VIAL 100 MG IV PUSH (09:27)
[2024-02-29] MEDS: lisinopriL 20 MG TABLET PO (09:27)
[2024-02-29] MEDS: LIPASE/AMYLASE/PROTEASE 12,000 UNITS CAP 1 CAP PO ×3 (09:28→18:03)
[2024-02-29] MEDS: guaiFENesin 12 HR 600 MG TABCR 1200 MG PO (09:28)
[2024-02-29 09:32] LABS: Lipase 490 U/L (23-300)
[2024-02-29] MEDS: POTASSIUM CHLORIDE 20 MEQ ER TABLET 40 MEQ PO (09:40)
[2024-02-29 12:33] LABS: Glucose Point of Care 109 mg/dl (65-105)
[2024-02-29] MEDS: MELATONIN 3 MG TABLET PO (20:51)
[2024-03-01 00:04] VITALS: PULSE 114
[2024-03-01 04:02] VITALS: PULSE 111
[2024-03-01 04:55] VITALS: BP 161/82; PULSE 111; RESP 20; TEMP 36.6; O2SAT 98
[2024-03-01] MEDS: PIPERACILLN/TAZ 3.375GM/NS50ML 3.375 GM/50 ML BAG IVPB (06:07)
[2024-03-01 06:12] LABS: Hematocrit 38.3 % (42.0-52.0); Hemoglobin 12.9 g/dL (14.0-18.0); Mean Corpuscular HGB Conc 33.7 g/dl (32-36); Mean Corpuscular Hemoglobin 33.4 pg (26-34); Mean Corpuscular Volume 99.2 fl (80-100); Mean Platelet Volume 9.7 fl (7.4-10.4); Platelet Count Result 321 k/mm3 (150-375); Red Blood Count 3.86 M/mm3 (4.6-6.20); Red Cell Distribution Width 13.2 % (11.5-14.5)
[2024-03-01 06:24] LABS: Alanine Aminotransferase 46 U/L (6-50); Albumin Level 3.3 g/dL (3.5-5.1); Alkaline Phosphatase 119 U/L (38-126); Anion Gap 6 mmol/L (4-12); Aspartate Amino Transferase 62 U/L (17-59); Bilirubin,Total 0.8 mg/dL (0.2-1.3); Blood Urea Nitrogen 10 mg/dL (9-20); Calcium 8.1 mg/dL (8.4-10.2); Carbon Dioxide 29 mmol/L (22-30); Chloride 93 mmol/L (98-107); Estimated CRCL calculation 144 ml/min; Estimated Glomerular Filt Rate > 60; Glucose 99 mg/dL (65-110); Magnesium 2.5 mg/dL (1.6-2.3); Potassium 3.1 mmol/L (3.4-5.0); Sodium 128 mmol/L (137-145)
[2024-03-01 07:19] LABS: Band Neutrophils Percent 30 % (0-6); Basophils Absolute Manual 0.16 K/mm3 (0.0-0.1); Basophils Percent Manual 1 % (0-1); Blastocytes 1 %; Eosinophils Absolute Manual 0.32 K/mm3 (0.02-0.50); Eosinophils Percent Manual 2 % (0-4); Metamyelocytes Percent 1 %; Monocytes Absolute Manual 1.12 K/mm3 (0.1-0.90); Monocytes Percent Manual 7 % (3-9); Neutrophils Absolute Manual 12.32 K/mm3 (1.3-6.7); Neutrophils Percent Manual 47 % (46-73); Platelet Estimate Adequate (Adequate); Promyelocytes Percent 1 %; Schistocytes None Seen; Total Cells Counted 100
[2024-03-01 08:00] VITALS: PULSE 128
[2024-03-01 09:04] VITALS: PULSE 133
[2024-03-01] MEDS: METOPROLOL SUCCINATE EXT REL 25 MG TABCR 75 MG PO (09:04)
[2024-03-01] MEDS: LIPASE/AMYLASE/PROTEASE 12,000 UNITS CAP 1 CAP PO ×2 (09:05→12:28)
[2024-03-01] MEDS: THIAMINE HCL 200 MG/2 ML VIAL 100 MG IV PUSH (09:05)
[2024-03-01] MEDS: POTASSIUM CHLORIDE 20 MEQ ER TABLET 40 MEQ PO (09:05)
[2024-03-01] MEDS: lisinopriL 20 MG TABLET PO (09:06)
[2024-03-01] MEDS: PANTOPRAZOLE 40 MG TABLET PO (09:06)
[2024-03-01] MEDS: hydroCHLOROthiazide 12.5 MG CAPSULE 25 MG PO (09:06)
[2024-03-01 09:08] LABS: Actin Antibody (IgG) <20 U (<20)
[2024-03-01 12:00] VITALS: PULSE 127
[2024-03-01 12:31] LABS: Cholesterol 134 mg/dL (0-200); HDL Direct 16 mg/dL; Triglycerides 159 mg/dL (<150)
[2024-03-01 12:41] LABS: LDL Cholesterol Direct 86 mg/dL
--- NOTE | 2024-03-02 17:14 | PM.DS ---
DS: Admitting Diagnosis Discharge Date 03/01/24 Admitting Diagnosis abdominal pain DS: Discharge Diagnosis Discharge Diagnosis (1) Acute pancreatitis: Qualifiers: Acute pancreatitis complication: no infection or necrosis Pancreatitis type: idiopathic Qualified Code(s): K85.00 - Idiopathic acute pancreatitis without necrosis or infection Code(s): K85.90 - Acute pancreatitis without necrosis or infection, unspecified Status: Acute Assessment and Plan: Elevated lipase with CT findings of pancreatitis, likely exacerbated by weekend ETOH consumption over 4 nights where he drank heavier than normal Patient describes a prior episode that was similar but not as severe where he had tachycardia, pain, nausea, vomiting and was ultimately started on metoprolol due to HTN and tachycardia Initial bowel rest with IV hydration followed by clears and ADAT to bland diet Trend CMP and lipase MRCP shows peripancreatic fluid, no choledocholithiasis noted Diffuse fatty liver on imaging GI consulted, appreciate recommendations and workup initiation ACHS or Q6H fingerstick glucose with low dose SSI and hypoglycemia protocol vitals q.4 telemetry ordered Ruby on ETOH abuse 02/25: Lipase today is down trending at 1526 White blood cell count increased from 22.4-25.1 despite Rocephin---changed to Zosyn. Unclear if this is just inflammatory or if there is a bacterial component. CT did some some fluid surrounding the pelvis. Patient has been afebrile but has persistent tachycardia. Blood cultures have been drawn, UA is negative. 02/26: White count is improving, left shift is present with bands 10%. Down to 18 today from 25.1---continue Zosyn Heart rate is slightly improved---115 bmp Blood cultures are pending Blood glucose is controlled 02/27: WBC continues to downtrend. 25.1-->18.--->16 Blood culture with NGTD Tmax 99.[address] abdomen and pelvis with acute interstitial pancreatitis with increasing peripancreatic stranding, acute peripancreatic fluid collections. New bilateral pleural effusions seen on CT. Stopping IVF for now as lipase has improved. I spoke with Dr Blanco who will see him this afternoon. He suspects this is just normal course of pancreatitis and is thinking his antibiotics can be discontinued as well. 02/28: WBC 17.0 today, afebrile continues with bandemia-23% CRP slowly downtrending. 32.9 from 35 Continue zosyn today (2) Hypertension: Code(s): I10 - Essential (primary) hypertension Status: Acute Assessment and Plan: Continue home medications Likely exacerbated by acute pain/nausea/vomiting 02/25: blood pressures reviewed and patient continues to be HTN 150-180/80-90's, HR tachycardic in the 120's Continuing lisinopril, metoprolol, hydrochlorothiazide elevation could also be related to possible alcohol withdrawal--- HAWKWA added 02/26: Review of the chart shows his blood pressures run HTN Better control today with systolic 140-160's/80's Could increase metoprolol for better rate and BP control--monitor for now 02/27: HTN overnight. Blood pressures ranging 204/106 to 154/92 Increased HCTZ, Metoprolol was increased yesterday as well Stopping IVF (3) Shortness of breath: Code(s): R06.02 - Shortness of breath Status: Acute Assessment and Plan: Dyspnea with exertion, expiratory wheeze, and tachycardia Pulse ox 92% on room air CTA chest shows new pleural effusions likely from IVF, no pneumonia. IVF stopped BNP, D-dimer ordered Lasix 40 mg IVP one time Levalbuterol now and q 6 hours Incentive spirometry 02/28: Resolved after stopping IVF and 1 x dose of lasix. BNP was negative. No PE on CTA. Levalbuterol to prn. (4) Leukocytosis: Qualifiers: Leukocytosis type: unspecified Qualified Code(s): D72.829 - Elevated white blood cell count, unspecified Code(s): D72.829 - Elevated whi
[2024-03-05 08:59] LABS: Mitochondrial (M2) Ab (IgG) <20.0 U
[2024-03-09 15:29] LABS: ALT 64 U/L (9-46); Alpha-2-Macroglobulin 123 mg/dL (106-279); Apolipoprotein A1 194 mg/dL (94-176); Fibrosis Score 0.11; Fibrosis Stage F0; GGT 201 U/L (3-90); Haptoglobin 171 mg/dL (43-212); Necroinflammat Act Grade A1; Total Bilirubin 0.9 mg/dL (0.2-1.2)
== END 2024-03-01 13:51 | disposition home or self-care (01) | DRG 440 ==
LOC: ANHED 22:28 → ANH3MEDSUR 02-25 03:15
PROVIDERS: Nurse Practitioner; Nurse Practitioner Family; Admitting Provider Internal Medicine; Emergency Provider Student in an Organized Health Care Education/Training Program; Visit Provider Nurse Practitioner Acute Care
DX: K85.00 Idiopathic acute pancreatitis without necrosis or infection (principal); K59.00 Constipation, unspecified; K76.0 Fatty (change of) liver, not elsewhere classified; D72.829 Elevated white blood cell count, unspecified; F10.10 Alcohol abuse, uncomplicated; G47.33 Obstructive sleep apnea (adult) (pediatric); I10 Essential (primary) hypertension; R74.01 Elevation of levels of liver transaminase levels; R06.02 Shortness of breath; Z99.89 Dependence on other enabling machines and devices
CPT/HCPCS: 36415; 71260; 71275; 74177; 74183; 76376; 76705; 80048; 80053; 80061; 80076; 81001; 81596; 82010; 82103; 82105; 82150; 82390; 82728; 82948; 83036; 83520; 83605; 83690; 83735; 83880; 84478; 85025; 85055; 86038; 86039; 86140; 86364; 87040; 93005; 94640; 96361; 96365; 96374; 96375; 99285; A9270; A9577; J0360; J0696; J1170; J1815; J1940; J2270; J2405; J2543; J3411; J3475; J3480; J7030; J7040; J7120; Q9967

== ENCOUNTER 2024-04-03 15:33 | Outpatient (CLI) | payer OTHER, SELFPAY ==
[2024-04-03 16:19] LABS: Basophils Absolute Auto 0.1 K/mm3 (0.0-0.1); Basophils Percent Auto 0.4 % (0.2-1.2); Eosinophils Absolute Auto 0.3 K/mm3 (0-0.3); Hemoglobin 14.2 g/dL (14.0-18.0); Immature Granulocyte Absolute 0.05 K/mm3 (0.00-0.031); Immature Granulocyte Percent A 0.4 % (0-0.5); Lymphocytes Absolute Auto 5.18 K/mm3 (0.9-3.2); Lymphocytes Percent Auto 40.4 % (18.3-44.2); Mean Corpuscular HGB Conc 33.8 g/dl (32-36); Mean Corpuscular Hemoglobin 32.8 pg (26-34); Mean Platelet Volume 10.4 fl (7.4-10.4); Monocytes Absolute Auto 0.8 K/mm3 (0.1-0.6); Monocytes Percent Auto 6.2 % (2.6-8.5); Neutrophils Absolute Auto 6.5 K/mm3 (1.3-6.7); Neutrophils Percent Auto 50.6 % (45.5-73.1); Platelet Count Result 461 k/mm3 (150-375); Red Blood Count 4.33 M/mm3 (4.6-6.20); Red Cell Distribution Width 12.8 % (11.5-14.5); White Blood Count 12.8 K/mm3 (4.5-10.0)
[2024-04-03 16:30] LABS: Alanine Aminotransferase 52 U/L (6-50); Albumin Level 4.6 g/dL (3.5-5.1); Alkaline Phosphatase 138 U/L (38-126); Anion Gap 10 mmol/L (4-12); Aspartate Amino Transferase 35 U/L (17-59); Bilirubin,Total 0.5 mg/dL (0.2-1.3); Blood Urea Nitrogen 10 mg/dL (9-20); Calcium 9.4 mg/dL (8.4-10.2); Carbon Dioxide 27 mmol/L (22-30); Chloride 98 mmol/L (98-107); Estimated Glomerular Filt Rate > 60; Glucose 91 mg/dL (65-110); Lipase 112 U/L (23-300); Potassium 4.5 mmol/L (3.4-5.0); Sodium 135 mmol/L (137-145)
== END 2024-04-03 15:34 | disposition home or self-care (01) ==
LOC: ANHLAB 15:34
PROVIDERS: Visit Provider Nurse Practitioner Family
DX: R74.8 Abnormal levels of other serum enzymes (principal); E87.1 Hypo-osmolality and hyponatremia; E87.6 Hypokalemia; K85.90 Acute pancreatitis without necrosis or infection, unspecified; K76.0 Fatty (change of) liver, not elsewhere classified; R74.01 Elevation of levels of liver transaminase levels
CPT/HCPCS: 36415; 80048; 80076; 83690; 85025

== ENCOUNTER 2024-06-09 14:33 | Emergency (ER) | payer OTHER, SELFPAY ==
--- NOTE | ~2024-06-09 | CT_ITS ---
CT abdomen pelvis w con Ordering provider: Silvia Hdez History: 33 years Male with . epigastric ABD pain, N/V, hx pancreaitits . Comparison: February 28, 2024 Technique: CT abdomen and pelvis with IV and without oral contrast. Automated exposure control and it erative reconstruction technique were employed. The dose-length product was 1064.13 mGy-cm. 100 mL Om nipaque 350 was given IV. Findings: VISUALIZED LOWER CHEST: Normal. UPPER ABDOMINAL ORGANS: Liver: Hypodensity measuring 2 cm is seen in the segment #7. Gallbladder: Normal. Spleen: Normal. Stomach/duodenum: Slightly thickened wall of the first and second parts of the duodenum. . Duodenitis is not excluded. Pancreas: Fat stranding is seen around the head and body of the pancreas. Collection is seen anterior to the pancreas measures 7.3 x 3.7 cm. Extension inferiorly with 2 smaller pockets is noted. There a re 1 to the right might not be excluded. Adrenals: Normal. Kidneys: Normal. PELVIC ORGANS: The bladder is slightly thickened wall. Evaluation for cystitis advised. BOWEL AND MESENTERY: Colon: No evidence of diverticulitis. Normal appendix. Small Bowel: Normal. No obstruction. Peritoneum/mesentery: No free air. Minimal free fluid is seen anterior to the Gerota fascia bilateral ly.. No mesenteric lymphadenopathy. RETROPERITONEUM: Normal aorta. No retroperitoneal lymphadenopathy. MUSCULOSKELETAL: Superficial soft tissues: The superficial soft tissues are normal. Bones: Normal spine. IMPRESSION: 1. Pancreatitis involving the head and body of the pancreas with surrounding fat stranding. Anterior collection is seen in the area of the body of the pancreas. Abscess is possible. Pseudocyst is also possible. 2. No evidence of appendicitis, diverticulitis or intestinal obstruction. 3. Slight thickening of the wall of the duodenum. duodenitis is possible.. 4. Hypodensity in the liver which may be a focal dilatation of the biliary ducts or focus of infecti on. Follow-up advised. Hemangioma is less likely. Reviewed, dictated and finalized at location A. IMPRESSION: 1. Pancreatitis involving the head and body of the pancreas with surrounding f at stranding. Anterior collection is seen in the area of the body of the pancre as. Abscess is possible. Pseudocyst is also possible. 2. No evidence of appendicitis, diverticulitis or intestinal obstruction. 3. Slight thickening of the wall of the duodenum. duodenitis is possible.. 4. Hypodensity in the liver which may be a focal dilatation of the biliary harry ts or focus of infection. Follow-up advised. Hemangioma is less likely.
[2024-06-09 14:34] VITALS: BP 128/74; PULSE 84; RESP 18; TEMP 36.8; O2SAT 100
[2024-06-09 14:47] LABS: Basophils Absolute Auto 0.1 K/mm3 (0.0-0.1); Basophils Percent Auto 0.4 % (0.2-1.2); Eosinophils Percent Auto 0.2 % (0-4.4); Hematocrit 48.9 % (42.0-52.0); Hemoglobin 17.6 g/dL (14.0-18.0); Immature Granulocyte Absolute 0.08 K/mm3 (0.00-0.031); Immature Granulocyte Percent A 0.4 % (0-0.5); Lymphocytes Percent Auto 18.9 % (18.3-44.2); Mean Corpuscular Hemoglobin 32.7 pg (26-34); Mean Corpuscular Volume 90.7 fl (80-100); Mean Platelet Volume 9.4 fl (7.4-10.4); Monocytes Percent Auto 5.3 % (2.6-8.5); Neutrophils Absolute Auto 14.6 K/mm3 (1.3-6.7); Neutrophils Percent Auto 74.8 % (45.5-73.1); Platelet Count Result 273 k/mm3 (150-375); Red Blood Count 5.39 M/mm3 (4.6-6.20); Red Cell Distribution Width 14.2 % (11.5-14.5); White Blood Count 19.6 K/mm3 (4.5-10.0)
[2024-06-09 15:05] LABS: Alanine Aminotransferase 49 U/L (6-50); Albumin Level 4.9 g/dL (3.5-5.1); Alkaline Phosphatase 96 U/L (38-126); Anion Gap 13 mmol/L (4-12); Aspartate Amino Transferase 48 U/L (17-59); Bilirubin,Total 1.2 mg/dL (0.2-1.3); Blood Urea Nitrogen 12 mg/dL (9-20); Calcium 9.6 mg/dL (8.4-10.2); Carbon Dioxide 25 mmol/L (22-30); Chloride 93 mmol/L (98-107); Estimated CRCL calculation 137 ml/min; Estimated Glomerular Filt Rate > 60; Glucose 134 mg/dL (65-110); Potassium 3.6 mmol/L (3.4-5.0); Sodium 131 mmol/L (137-145)
--- NOTE | 2024-06-09 15:10 | ED.ABDPAIN ---
HPI - Abdominal Pain General Chief Complaint: Abdominal Pain <ANGELLA Masterson Last Filed: 06/09/24 15:28> Stated Complaint: abd pain <ANGELLA Masterson Last Filed: 06/09/24 15:28> Time Seen by Provider: 06/09/24 15:10 <ANGELLA Masterson Last Filed: 06/09/24 15:28> Focused HPI: Patient is a 33-year-old male who presents the ED with report of abdominal pain. Patient reports he developed pain around 12:00 p.m. today. Pain has been constant since then. Began initially in his lower back and has since radiated throughout his abdomen. Worst throughout his upper abdomen currently. He notes he was recently hospitalized in January of this year for pancreatitis in states the pain feels similar. His pancreatitis was attributed to ETOH use. He has since cut back significantly on ETOH. States he had a few drinks over the weekend, and also ran out of his Creon medication on Saturday. He did take a tramadol prior to arrival without improvement of pain. Reports nausea, vomiting, diaphoresis. Denies known fevers. GENERAL: Mildly ill and uncomfortable-appearing, obese with BMI of 33.4, and in mild acute distress d/t pain. HEAD: Normocephalic, atraumatic. CHEST: Clear to auscultation. ?No respiratory distress. HEART: Regular rate and rhythm.? ABD: Diffuse tenderness in epigastric region. No rebound. Normoactive BS. NEURO: ?Alert and oriented x3. Patient screened in triage and initial orders placed.? ?Additional care and disposition to be based upon?diagnostic testing and treatment. <ANGELLA Masterson Last Filed: 06/09/24 15:28> Source: patient and old records reviewed <ANGELLA Masterson Last Filed: 06/09/24 15:28> Mode of arrival: ambulatory <ANGELLA Masterson Last Filed: 06/09/24 15:28> Limitations: no limitations <ANGELLA Masterson Last Filed: 06/09/24 15:28> Related Data Home Medications: Home Medications Medication Instructions Recorded Confirmed lisinopril 20 1 tablet PO DAILY 02/25/24 04/03/24 mg-hydrochlorothiazide 12.5 mg tablet albuterol sulfate 90 mcg/actuation inhalation 04/03/24 04/03/24 aerosol inhaler famotidine 20 mg tablet mg PO 04/03/24 04/03/24 metoprolol succinate 100 mg mg PO 04/03/24 04/03/24 tablet,extended release 24 hr <Silvia Hdez PA-C - Last Filed: 06/09/24 15:28> Allergies/Adverse Reactions: Allergies Allergy/AdvReac Type Severity Reaction Status Date / Time No Known Allergies Allergy Verified 04/03/24 15:06 <ANGELLA Masterson Last Filed: 06/09/24 15:28> Review of Systems Review of Systems: CONSTITUTIONAL: Denies fever GASTROINTESTINAL: Reports abdominal pain, nausea, vomiting <ANGELLA Marquez Last Filed: 06/09/24 21:29> All systems reviewed & are unremarkable except as noted in HPI and below <ANGELLA Marquez Last Filed: 06/09/24 21:29> [facility] Past Medical History Medical History: Medical History Hypertension DENISE on CPAP <ANGELLA Masterson Last Filed: 06/09/24 15:28> Family History Family History: Family History Mother Hypertension <ANGELLA Masterson Last Filed: 06/09/24 15:28> Social History Social History: Social History (Updated 04/03/24 @ 15:08 by Eleanor Uriarte MA) Smoking status: Never smoker Alcohol intake: never Substance use: never Substance use type: does not use Other substance usage details: weekend use Do You Feel Safe in your Home?: Yes Lack of Transportation: No Lack of Food: Never True Current Housing: I Have Housing Concerned About Future Housing: No Difficulty Paying Gas/Electric Bills: No Difficulty Paying for Meds: No Currently Unemployed: No Education: Bachelor's Degree Difficulty w/ Child
--- NOTE | 2024-06-09 15:13 | ECG_ITS ---
Test Date: 2024-06-09 16:16:54 Measurements Intervals [place] Rate: 73 P: 60 TX: 152 QRS: -41 QRSD: 104 T: 53 QT: 399 QTc: 442 Interpretive Statements SINUS RHYTHM MARKED LEFT AXIS DEVIATION [QRS AXIS < -30] INCOMPLETE RIGHT BUNDLE BRANCH BLOCK [90+ ms QRS DURATION, TERMINAL R IN V1/V2, 40+ ms S IN I/aVL/V4/V5/V6] ABNORMAL ECG Compared to ECG 02/28/2024 11:57:17 HEART RATE IS REDUCED NO OTHER SIGNIFICANT CHANGE Electronically Signed On 06-10-2024 07:14:58 CDT by Shreyas Posey M.D.
[2024-06-09] MEDS: PANTOPRAZOLE SODIUM IV 40 MG VIAL IV PUSH (15:25)
[2024-06-09] MEDS: ONDANSETRON INJ 4 MG/2 ML VIAL IV PUSH (15:25)
[2024-06-09] MEDS: oxyCODONE HCL (*CRX) 5 MG TAB IR PO (15:35)
[2024-06-09 15:38] LABS: Add Urine Microscopic? NO; Appearance Urine Clear (Clear); Bilirubin Urine Negative (Negative); Blood Urine Negative (Negative); Color Urine Yellow (Yellow); Glucose Urine UA Negative (Negative); Ketones Urine Trace mg/dL (Negative); Leukocyte Esterase Ur Negative LEU/UL (Negative); Nitrate Urine Negative (Negative); Protein Urine Negative (Negative); Specific Grav Ur 1.016 (1.001-1.035); Urobilinogen Urine 0.2 mg/dL (<2.0); pH Urine 7.5 (5.0-9.0)
[2024-06-09 15:48] LABS: Troponin I < 0.012 ng/mL (0.000-0.034)
[2024-06-09 16:14] LABS: Lipase 10059 U/L (23-300)
[2024-06-09] MEDS: SODIUM CHLORIDE 0.9% IV 1,000 ML 999 ML IV CONT ×3 (17:52→19:24)
[2024-06-09] MEDS: MORPHINE SULFATE (*CRX) 4 MG/ML INJ IV PUSH ×2 (18:23→21:08)
[2024-06-09 18:27] VITALS: BP 134/75; PULSE 76; RESP 16; TEMP 36.8; O2SAT 98
[2024-06-09 18:39] LABS: Triglycerides 325 mg/dL (<150)
[2024-06-09 18:40] LABS: Ethanol < 10 mg/dL (<10)
[2024-06-09 18:52] LABS: Troponin I < 0.012 ng/mL (0.000-0.034)
[2024-06-09] MEDS: metroNIDAZOLE 500 MG/ISO 100ML 500 MG/100 ML BAG 100 MG IVPB (18:58)
[2024-06-09 19:00] VITALS: BP 143/84; PULSE 78; RESP 18; O2SAT 100
[2024-06-09] MEDS: KETOROLAC 15 MG/ML VIAL (*BKC) IV PUSH (19:25)
[2024-06-09 20:51] VITALS: BP 153/89; PULSE 87; RESP 17; TEMP 36.7; O2SAT 96
[2024-06-09 20:56] VITALS: BP 153/89; PULSE 87; RESP 17; TEMP 36.7; O2SAT 96
== END 2024-06-09 21:30 | disposition short-term general hospital (02) ==
PROVIDERS: Emergency Medicine; Physician Assistant; Emergency Provider Physician Assistant
DX: K85.90 Acute pancreatitis without necrosis or infection, unspecified (principal); I10 Essential (primary) hypertension; G47.33 Obstructive sleep apnea (adult) (pediatric); Z79.899 Other long term (current) drug therapy
CPT/HCPCS: 36415; 74177; 80053; 81003; 82077; 83690; 84478; 84484; 85025; 87040; 93005; 96361; 96365; 96367; 96375; 96376; 99285; A9270; J0696; J1836; J1885; J2270; J2405; J2470; J7030; Q9967